=== PATIENT | male | born 1960 | race Caucasian/White ===

== ENCOUNTER → 2017-03-03 | Outpatient (CLI) | payer OTHER ==
--- NOTE | 2017-03-03 09:30 | US ---
EXAMINATION TYPE: US duplex aorta DATE OF EXAM: 03/03/2017 COMPARISON: NONE CLINICAL HISTORY: Palpable Abdomen Z13.6 Encounter for screening . Smoker EXAM MEASUREMENTS: Abdominal Aorta: Proximal: 2.2 x 2.3cm Mid: 1.3 x 1.8cm Distal: 2.4 x 2.4cm Bifurcation: RT: 0.6 x 0.7cm Calcifications noted distally. Limited evaluation of bifurcation due to overlying bowel and large juan carlos unt of calcification, possible right iliac visualized, unable to visualize left iliac. IMPRESSION: No greater than 3 cm aneurysmal change in the abdominal aorta is identified.
== END | disposition home or self-care (01) ==
LOC: RADUSWWP 07:41
PROVIDERS: ATTEND Family Medicine
DX: Z13.6 Encounter for screening for cardiovascular disorders (principal); F17.200 Nicotine dependence, unspecified, uncomplicated
CPT/HCPCS: 93979

== ENCOUNTER 2018-09-06 13:38 | Inpatient (IN) | payer OTHER ==
[2018-09-06] MEDS ORDERED: ASPIRIN 81 MG PO STA (14:01)
[2018-09-06] MEDS ORDERED: NITROGLYCERIN SL TABS 0.4 MG TAB SUBLINGUAL STA (14:01)
[2018-09-06] MEDS ORDERED: SODIUM CHLORIDE 0.9% 1,000 ML IV STA ×2 (14:01→17:01)
--- NOTE | 2018-09-06 14:08 | ED ---
General Adult HPI <Tano Arroyo - Last Filed: 09/06/18 17:16> - General Source: patient, EMS, RN notes reviewed Mode of arrival: EMS Limitations: no limitations <Sabino Buchanan - Last Filed: 09/06/18 17:37> - General Chief complaint: Chest Pain Stated complaint: chest heaviness Time Seen by Provider: 09/06/18 13:50 - History of Present Illness Initial comments: patient's a 58-year-old male presented to the emergency room today with multiple complaints. Patient did arrive by EMS. For abdominal pain that started this morning. He states is located in the upper abdomen is also been having chest pain over the last 3 or 4 days. Patient states that 3 days ago he also noticed some numbness tingling sensation going down into the left and right legs. He states he feels like his legs are weaker. He describes the numbness and tingling as pins and needles as if they're fallen asleep. Patient states that the pain in his chest as a pressure and heaviness as if his dog was laying on top of them. Patient also admits that the pain in the epigastric area is sharp in nature. He states he's not had this epigastric pain in the past. Patient denies any other complaints currently. Patient denies any recent fever, chills, shortness of breath, back pain,vomiting, numbness or tingling, headaches or visual changes, or any other complaints. (Sabino Buchanan) - Related Data Home Medications Medication Instructions Recorded Confirmed Megestrol [Megace] 400 mg PO BID 09/06/18 09/06/18 Allergies Allergy/AdvReac Type Severity Reaction Status Date / Time Paper Tape AdvReac Unknown Red , Uncoded 09/06/18 13:52 Irritated Skin Review of Systems ROS Other: All systems not noted in ROS Statement are negative. <Tano Arroyo - Last Filed: 09/06/18 17:16> ROS Other: All systems not noted in ROS Statement are negative. <Sabino Buchanan - Last Filed: 09/06/18 17:37> ROS Statement: Those systems with pertinent positive or pertinent negative responses have been documented in the HPI. Past Medical History Past Medical History: Cancer, Hypertension, Pulmonary Embolus (PE) Additional Past Medical History / Comment(s): HX OF LEUKEMIA (RECIEVED CHEMO- LAST 1983), HAND TREMORS, HX OF PEX2 LEFT LUNG, STATES "ARRYTHMIA", OCCASIONAL SWELLING RIGHT FOOT., BACK AND LEFT HIP PAIN., STATES RECENTLY TOLD HE WAS ANEMIC., PT TAKES METFORMIN BUT DOES NOT KNOW WHY, DENIES DIABETES. History of Any Multi-Drug Resistant Organisms: None Reported Past Surgical History: Hernia Repair, Joint Replacement, Orthopedic Surgery Additional Past Surgical History / Comment(s): ANNIKA HIP SURGERY, LEFT TOTAL HIP, PORT FOR CHEMO INSERTED AND REMOVED. , NOSE SURGERY. Past Anesthesia/Blood Transfusion Reactions: No Reported Reaction Past Psychological History: No Psychological Hx Reported Smoking Status: Heavy tobacco smoker Past Alcohol Use History: Occasional Past Drug Use History: Marijuana - Past Family History Father Family Medical History: Cancer Additional Family Medical History / Comment(s): LUNG CA Mother Family Medical History: Cancer Additional Family Medical History / Comment(s): LUNG CANCER <Sabino Buchanan - Last Filed: 09/06/18 17:37> General Exam <Tano Arroyo - Last Filed: 09/06/18 17:16> Limitations: no limitations <Sabino Buchanan - Last Filed: 09/06/18 17:37> - General Exam Comments Initial Comments: General: The patient is awake and alert, in no distress, and does not appear acutely ill. Eye: There is normal conjunctiva bilaterally. No signs of icterus. Ears, nose, mouth and throat: There are moist mucous membranes and no oral lesions. Neck: The neck is supple. Cardiovascular: There is a regular rate and rhythm. No murmur, rub or gallop is appreciated. Respiratory: Lungs are clear to auscultation, respirations are non-labored, breath sounds are equal. No wheezes, stridor, rales, or rhonchi. Gastrointestinal: abdomen soft on palpation. Patient does have tenderness epigastric and upper quadrants. No rebound, guarding or CVA tenderness. Musculoskeletal: Normal ROM, no tenderness. Strength 5/5. Sensation intact. Pulses equal bilaterally 2+. Neurological: A&O x 3. CN II-XII intact, There are no obvious motor or sensory deficits. Coordination appears grossly intact. Speech is normal. Skin: Skin is warm and dry and no rashes or lesions are noted. Psychiatric: Cooperative, appropriate mood & affect, normal judgment. (Sabino Buchanan) Course <Tano Arroyo - Last Filed: 09/06/18 17:16> <DewayneSabino - Last Filed: 09/06/18 17:37> Vital Signs 09/06/18 09/06/18 09/06/18 13:46 14:05 14:27 Temperature 97.1 F L Pulse Rate 74 78 84 Respiratory 18 16 15 Rate Blood Pressure 105/77 114/85 101/66 O2 Sat by Pulse 98 99 97 Oximetry 09/06/18 09/06/18 16:05 16:50 Temperature Pulse Rate 97 Respiratory 16 Rate Blood Pressure 100/68 84/67 O2 Sat by Pulse 100 Oximetry - Reevaluation(s) Reevaluation #1: 09/06/18 17:16 PA supervision: I proceeded [id number] evaluation the patient did discuss the findings with him and his family. Patient had the onset of chest pain is been intermittent for last several days he also had numbness to his lower extremities though no weakness. No new trauma. He does have some reproducibility to his chest pain but he also stated felt like his dog was lanced chest different times. Currently is pain-free except with palpation. He has no sensory deficits or motor deficits to his lower extremities he does however have marked tenderness palpation of the sciatic nerve as well as. He does have a history of prior hip surgeries. He will be admitted with consultation by Dr. Johnson who is seen in the past also [facility] who he has seen before. I did discuss the case with Alan who is covering for Dr. Kovacs. (Tano Arroyo) EKG Findings - EKG Comments: EKG Findings:: EKG performed at 1346: Shows normal sinus rhythm at 79 bpm. [place] interval 176. QRS 84. QT/QTc 420/481. <Sabino Buchanan - Last Filed: 09/06/18 17:37> Medical Decision Making - Lab Data Result diagrams: 09/06/18 14:00 09/06/18 14:00 <CruzTano - Last Filed: 09/06/18 17:16> - Lab Data Result diagrams: 09/06/18 14:00 09/06/18 14:00 <Sabino Buchanan - Last Filed: 09/06/18 17:37> - Medical Decision Making patient's ultrasound reviewed show no sign of acute cholecystitis. Does have a 19,000 white count. Patient chest x-ray is unremarkable. Patient can't take enzymes negative. EKG showing no acute changes. Does admit that he started having some chest heaviness and pain epigastric area this morning. Patient be admitted for serial enzymes with consult to cardiology. Patient also admits to lower back pain with numbness tingling down to his legs. Consult to [facility] who has seen in the past. Case discussed seen by attending physician Dr. Arroyo. (DewayneSabino) - Lab Data Lab Results 09/06/18 09/06/18 09/06/18 Range/Units 14:00 14:00 14:00 WBC 19.3 H (3.8-10.6) k/uL RBC 3.96 L (4.30-5.90) m/uL Hgb 13.0 (13.0-17.5) gm/dL Hct 39.5 (39.0-53.0) % MCV 99.8 (80.0-100.0) fL MCH 32.7 (25.0-35.0) pg MCHC 32.8 (31.0-37.0) g/dL RDW 15.7 H (11.5-15.5) % Plt Count 425 (150-450) k/uL Neutrophils % 90 % Lymphocytes % 6 % Monocytes % 3 % Eosinophils % 0 % Basophils % 0 % Neutrophils # 17.3 H (1.3-7.7) k/uL Lymphocytes # 1.2 (1.0-4.8) k/uL Monocytes # 0.6 (0-1.0) k/uL Eosinophils # 0.1 (0-0.7) k/uL Basophils # 0.0 (0-0.2) k/uL Macrocytosis Slight PT (9.0-12.0) sec INR (<1.2) APTT (22.0-30.0) sec Sodium 136 L (137-145) mmol/L Potassium 4.0 (3.5-5.1) mmol/L Chloride 105 (98-107) mmol/L Carbon Dioxide 23 (22-30) mmol/L Anion Gap 8 mmol/L BUN 9 (9-20) mg/dL Creatinine 0.62 L (0.66-1.25) mg/dL Est GFR (CKD-EPI)AfAm >90 (>60 ml/min/1.73 sqM) Est GFR (CKD-EPI)NonAf >90 (>60 ml/min/1.73 sqM) Glucose 139 H (74-99) mg/dL Calcium 8.6 (8.4-10.2) mg/dL Magnesium 1.6 (1.6-2.3) mg/dL Total Bilirubin 1.0 (0.2-1.3) mg/dL AST 21 (17-59) U/L ALT 18 L (21-72) U/L Alkaline Phosphatase 140 H (38-126) U/L Total Creatine Kinase 24 L (55-170) U/L CK-MB (CK-2) 0.4 (0.0-2.4) ng/mL CK-MB (CK-2) Rel Index 1.7 Troponin I 0.030 (0.000-0.034) ng/mL Total Protein 5.7 L (6.3-8.2) g/dL Albumin 2.7 L (3.5-5.0) g/dL Amylase <30 L (30-110) U/L Lipase 72 (23-300) U/L Urine Color Urine Appearance (Clear) Urine pH (5.0-8.0) Ur Specific [place] (1.001-1.035) Urine Protein (Negative) Urine Glucose (UA) (Negative) Urine Ketones (Negative) Urine Blood (Negative) Urine Nitrite (Negative) Urine Bilirubin (Negative) Urine Urobilinogen (<2.0) mg/dL Ur Leukocyte Esterase (Negative) Urine RBC (0-5) /hpf Urine WBC (0-5) /hpf Ur Squamous Epith Cells (0-4) /hpf Urine Mucus (None) /hpf 09/06/18 09/06/18 Range/Units 14:00 17:15 WBC (3.8-10.6) k/uL RBC (4.30-5.90) m/uL Hgb (13.0-17.5) gm/dL Hct (39.0-53.0) % MCV (80.0-100.0) fL MCH (25.0-35.0) pg MCHC (31.0-37.0) g/dL RDW (11.5-15.5) % Plt Count (150-450) k/uL Neutrophils % % Lymphocytes % % Monocytes % % Eosinophils % % Basophils % % Neutrophils # (1.3-7.7) k/uL Lymphocytes # (1.0-4.8) k/uL Monocytes # (0-1.0) k/uL Eosinophils # (0-0.7) k/uL Basophils # (0-0.2) k/uL Macrocytosis PT 10.0 (9.0-12.0) sec INR 0.9 (<1.2) APTT 22.4 (22.0-30.0) sec Sodium (137-145) mmol/L Potassium (3.5-5.1) mmol/L Chloride (98-107) mmol/L Carbon Dioxide (22-30) mmol/L Anion Gap mmol/L BUN (9-20) mg/dL Creatinine (0.66-1.25) mg/dL Est GFR (CKD-EPI)AfAm (>60 ml/min/1.73 sqM) Est GFR (CKD-EPI)NonAf (>60 ml/min/1.73 sqM) Glucose (74-99) mg/dL Calcium (8.4-10.2) mg/dL Magnesium (1.6-2.3) mg/dL Total Bilirubin (0.2-1.3) mg/dL AST (17-59) U/L ALT (21-72) U/L Alkaline Phosphatase (38-126) U/L Total Creatine Kinase (55-170) U/L CK-MB (CK-2) (0.0-2.4) ng/mL CK-MB (CK-2) Rel Index Troponin I (0.000-0.034) ng/mL Total Protein (6.3-8.2) g/dL Albumin (3.5-5.0) g/dL Amylase (30-110) U/L Lipase (23-300) U/L Urine Color Yellow Urine Appearance Clear (Clear) Urine pH 6.0 (5.0-8.0) Ur Specific [place] 1.020 (1.001-1.035) Urine Protein 1+ H (Negative) Urine Glucose (UA) Negative (Negative) Urine Ketones Trace H (Negative) Urine Blood Negative (Negative) Urine Nitrite Negative (Negative) Urine Bilirubin Negative (Negative) Urine Urobilinogen <2.0 (<2.0) mg/dL Ur Leukocyte Esterase Negative (Negative) Urine RBC 1 (0-5) /hpf Urine WBC 2 (0-5) /hpf Ur Squamous Epith Cells <1 (0-4) /hpf Urine Mucus Moderate H (None) /hpf Disposition <Tano Arroyo - Last Filed: 09/06/18 17:16> Is patient prescribed a controlled substance at d/c from ED?: No Time of Disposition: 17:04 <Sabino Buchanan - Last Filed: 09/06/18 17:37> Clinical Impression: Chest pain, Sciatica Disposition: ADMITTED IP TO THIS HOSP Condition: Good Referrals: [facility] [Primary Care Provider] - 1-2 days
[2018-09-06 14:39] LABS: Basophils % (A) 0 %; Eosinophils # (A) 0.1 k/uL (0-0.7); Eosinophils % (A) 0 %; HCT 39.5 % (39.0-53.0); Lymphocytes # (A) 1.2 k/uL (1.0-4.8); Lymphocytes % (A) 6 %; MCH 32.7 pg (25.0-35.0); MCHC 32.8 g/dL (31.0-37.0); MCV 99.8 fL (80.0-100.0); Macrocytosis Slight; Mean Platelet Volume 7.2; Monocytes # (A) 0.6 k/uL (0-1.0); Monocytes % (A) 3 %; Neutrophils # (A) 17.3 k/uL (1.3-7.7); Neutrophils % (A) 90 %; Platelet Count 425 k/uL (150-450); RBC 3.96 m/uL (4.30-5.90); RDW 15.7 % (11.5-15.5); WBC 19.3 k/uL (3.8-10.6)
[2018-09-06 14:48] LABS: ALT 18 U/L (21-72); AST 21 U/L (17-59); Albumin 2.7 g/dL (3.5-5.0); Alkaline Phosphatase 140 U/L (38-126); Amylase <30 U/L (30-110); Anion Gap 8 mmol/L; Blood Urea Nitrogen 9 mg/dL (9-20); Calcium 8.6 mg/dL (8.4-10.2); Carbon Dioxide 23 mmol/L (22-30); Chloride 105 mmol/L (98-107); Glucose 139 mg/dL (74-99); Lipase 72 U/L (23-300); Magnesium 1.6 mg/dL (1.6-2.3); Sodium 136 mmol/L (137-145); Total Protein 5.7 g/dL (6.3-8.2)
--- NOTE | 2018-09-06 14:48 | XR ---
EXAMINATION TYPE: XR chest 2V DATE OF EXAM: 09/06/2018 COMPARISON: Prior chest x-ray 02/27/2013 HISTORY: Chest pain TECHNIQUE: Frontal and lateral views of the chest are obtained. FINDINGS: There is no focal air space opacity, pleural effusion, or pneumothorax seen. The cardiac silhouette size is within normal limits. Prominent lung volumes persists which may be indicative of u nderlying COPD. The osseous structures are intact. IMPRESSION: No acute cardiopulmonary process.
[2018-09-06 14:49] LABS: INR 0.9 (<1.2); Partial Thromboplastin Time 22.4 sec (22.0-30.0)
[2018-09-06 15:06] LABS: Creatine Kinase MB 0.4 ng/mL (0.0-2.4); Troponin I 0.03 ng/mL (0.000-0.034)
[2018-09-06] MEDS ORDERED: HYDROmorphone 0.5 MG/0.5 ML SYRINGE IVP STA (15:24)
[2018-09-06] MEDS ORDERED: METOCLOPRAMIDE 5 MG/ML 2 ML VIAL IVP STA (15:25)
--- NOTE | 2018-09-06 16:20 | US ---
EXAMINATION TYPE: US abdomen limited DATE OF EXAM: 09/06/2018 COMPARISON: NONE CLINICAL HISTORY: 58-year-old male Pain. Epigastric pain today TECHNIQUE: Multiple sonographic images of the right upper quadrant are obtained. FINDINGS: EXAM MEASUREMENTS: Liver Length: 11.5 cm Gallbladder Wall: 0.3 cm CBD: 0.3 cm Right Kidney: 9.2 x 4.6 x 4.6 cm Pancreas: slightly heterogeneous but without specific abnormality Liver: normal size with homogeneous appearance. No focal lesion seen. Gallbladder: no abnormal distention, wall thickening, pericholecystic fluid, or shadowing calculi. Evidence for sonographic Black's sign: no CBD: wnl Right Kidney: no evidence of hydronephrosis IMPRESSION: Unremarkable sonographic examination of the right upper quadrant.
[2018-09-06] MEDS ORDERED: SODIUM CHLORIDE 0.9% 500 ML IV STA (17:05)
[2018-09-06 17:31] LABS: Appearance,Urine Clear (Clear); Bilirubin,Urine Negative (Negative); Blood,Urine Negative (Negative); Color,Urine Yellow; Glucose,Urine (UA) Negative (Negative); Ketones,Urine Trace (Negative); Leukocyte Esterase,Urine Negative (Negative); Mucus,Urine Moderate /hpf; Nitrite,Urine Negative (Negative); Protein,Urine 1+ (Negative); RBC,Urine 1 /hpf (0-5); Squamous Epithelial Cell,Urine <1 /hpf (0-4); Urobilinogen,Urine <2.0 mg/dL (<2.0)
[2018-09-06] MEDS ORDERED: NALOXONE 0.4 MG/ML 1 ML VIAL IV PRN (17:37)
[2018-09-06] MEDS ORDERED: NITROGLYCERIN SL TABS 0.4 MG TAB SUBLINGUAL PRN (17:40)
[2018-09-06 22:16] LABS: Troponin I 0.138 ng/mL (0.000-0.034)
[2018-09-07] MEDS ORDERED: METOCLOPRAMIDE 5 MG/ML 2 ML VIAL ONE (00:12)
[2018-09-07 03:00] LABS: Basophils % (A) 0 %; Eosinophils # (A) 0.2 k/uL (0-0.7); Eosinophils % (A) 1 %; HCT 41.4 % (39.0-53.0); HGB 13.3 gm/dL (13.0-17.5); Lymphocytes # (A) 1.1 k/uL (1.0-4.8); Lymphocytes % (A) 4 %; MCH 32.8 pg (25.0-35.0); MCHC 32.1 g/dL (31.0-37.0); MCV 102.1 fL (80.0-100.0); Macrocytosis Slight; Mean Platelet Volume 6.8; Monocytes # (A) 0.7 k/uL (0-1.0); Monocytes % (A) 3 %; Neutrophils # (A) 23.7 k/uL (1.3-7.7); Neutrophils % (A) 92 %; Platelet Count 393 k/uL (150-450); RBC 4.05 m/uL (4.30-5.90); WBC 25.8 k/uL (3.8-10.6)
[2018-09-07 03:16] LABS: Cholesterol 170 mg/dL (<200); HDL Cholesterol 43 mg/dL (40-60); LDL Cholesterol,Calculated 103 mg/dL (0-99); Triglycerides 120 mg/dL (<150)
[2018-09-07 03:33] LABS: Creatine Kinase MB 1.5 ng/mL (0.0-2.4)
[2018-09-07 03:40] LABS: Troponin I 0.201 ng/mL (0.000-0.034)
[2018-09-07] MEDS ORDERED: HEPARIN SODIUM,PORCINE 5,000 UNIT/ML 1 ML VIAL IV ONE (08:11)
[2018-09-07] MEDS ORDERED: HEPARIN SODIUM,PORCINE 5,000 UNIT/ML 1 ML VIAL IV PRN (08:11)
[2018-09-07] MEDS ORDERED: ATORVASTATIN 40 MG TAB PO STA (08:14)
[2018-09-07] MEDS ORDERED: HEPARIN SOD,PORK IN 0.45% NACL 25,000 UNIT in 0.45% NACL 1 250ML.BAG IV SCH (08:15)
--- NOTE | 2018-09-07 08:22 | P.CRDCN ---
History of Present Illness Consult date: 09/07/18 Requesting physician: Robbie Kovacs Consult reason: chest pain Chief complaint: Chest tightness, abdominal pain History of present illness: This is a 58-year-old gentleman with no prior documented history of hypertension, no diabetes, no hyperlipidemia, he does smoke 2 packs of cigarettes per day, history of COPD, he also has a family history of premature coronary artery disease in his father who had a myocardial infarction at a young age. He states that he does follow with Dr. Karen Johnson in the office. Patient presented to the hospital with symptoms of chest tightness, he states that for the past couple of days he's been having intermittent chest tightness with associated diaphoresis. He's also noticed some numbness in his bilateral legs. Patient states that he's been having chest pressure and heaviness as well as a discomfort in his epigastric and abdominal region. Yesterday patient did have associated nausea and vomiting, and did have some episodes of loose stools. Chest x-ray on admission here did not reveal any acute cardiopulmonary process. Ultrasound of the abdomen was performed which revealed unremarkable sonographic examination of the right upper quadrant. EKG showed a normal sinus rhythm with nonspecific ST-T wave changes. White blood cell count on arrival 19.3, 25.8 this morning, hemoglobin 13, platelet count 393. Sodium 136, potassium 4.0, BUN 9, creatinine 0.6, lactic acid 1.6. Alkaline phosphatase 140 , initial troponin 0.030, subsequent troponin 0.1, 0.2. Cholesterol 170, triglycerides 120, LDL 103, HDL 43. At time of my examination this morning, patient complains of mild chest tightness, feels very thirsty, states he has not had anything to eat or drink in the past 24 hours. Past Medical History Past Medical History: Cancer, COPD, Pneumonia, Pulmonary Embolus (PE) Additional Past Medical History / Comment(s): HX OF LEUKEMIA (RECIEVED CHEMO- LAST 1983) hx ulcers around the time he was receiving chemo , HAND TREMORS, HX OF PEX2 LEFT LUNG when receivng chemo, BACK AND LEFT HIP PAIN., hx of anemia has had blood transfusions and iron infusions, sciatic nerve pain History of Any Multi-Drug Resistant Organisms: None Reported Past Surgical History: Hernia Repair, Joint Replacement, Orthopedic Surgery Additional Past Surgical History / Comment(s): ANNIKA HIP SURGERY, LEFT TOTAL HIP, PORT FOR CHEMO INSERTED AND REMOVED. , NOSE SURGERY.egd/colonoscopy/polypectomy Past Anesthesia/Blood Transfusion Reactions: No Reported Reaction Additional Past Anesthesia/Blood Transfusion Reaction / Comment(s): blood transfusion-no reaction Smoking Status: Current every day smoker - Past Family History Father Family Medical History: Cancer Additional Family Medical History / Comment(s): LUNG CA Mother Family Medical History: Cancer Additional Family Medical History / Comment(s): LUNG CANCER Medications and Allergies Home Medications Medication Instructions Recorded Confirmed Type Megestrol [Megace] 400 mg PO BID 09/06/18 09/06/18 History Allergies Allergy/AdvReac Type Severity Reaction Status Date / Time Paper Tape AdvReac Unknown Red , Uncoded 09/06/18 13:52 Irritated Skin Physical Exam Vitals: Vital Signs Temp Pulse Pulse Resp BP BP Pulse Ox 09/07/18 03:11 97.3 F L 98 16 109/73 99 09/06/18 23:42 97.4 F L 107 H 18 117/77 99 09/06/18 22:27 88 18 105/69 97 09/06/18 19:30 92 15 99/69 98 09/06/18 18:38 85 16 93/63 98 09/06/18 17:46 85 16 106/72 99 09/06/18 16:50 84/67 09/06/18 16:05 97 16 100/68 100 09/06/18 14:27 84 15 101/66 97 09/06/18 14:05 78 16 114/85 99 09/06/18 13:46 97.1 F L 74 18 105/77 98 Intake and Output 09/06/18 09/07/18 09/07/18 22:59 06:59 14:59 Intake Total 10 Balance 10 Intake: IV 10 0.9 10 Other: Voiding Method Urinal Weight 72.5 kg PHYSICAL EXAMINATION: GENERAL: 58-year-old somewhat of a seated gentleman in no acute distress at the time of my examination HEENT: Head is atraumatic, normocephalic. Pupils equal, round. Sclera anicteric. Conjunctiva are clear. Mucous membranes of the mouth are moist. Neck is supple. There is no elevated jugular venous pressure. No carotid bruit is heard. HEART EXAMINATION: Heart S1, S2 normal. No murmur or gallop heard. CHEST EXAMINATION: Lungs reveal decreased air exchange throughout. ABDOMEN: Soft, mild generalized tenderness . Bowel sounds are heard. No organomegaly noted. EXTREMITIES: 1+ peripheral pulses with no evidence of peripheral edema and no calf tenderness noted. NEUROLOGIC patient is awake, alert and oriented 3 . . Results 09/07/18 02:41 09/06/18 14:00 Cardiac Enzymes 09/06/18 09/06/18 09/06/18 Range/Units 14:00 14:00 20:48 AST 21 (17-59) U/L CK-MB (CK-2) 0.4 1.0 (0.0-2.4) ng/mL Troponin I 0.030 0.138 H* (0.000-0.034) ng/mL 09/07/18 Range/Units 02:41 AST (17-59) U/L CK-MB (CK-2) 1.5 (0.0-2.4) ng/mL Troponin I 0.201 H* (0.000-0.034) ng/mL Coagulation 09/06/18 Range/Units 14:00 PT 10.0 (9.0-12.0) sec APTT 22.4 (22.0-30.0) sec Lipids 09/07/18 Range/Units 02:41 Triglycerides 120 (<150) mg/dL Cholesterol 170 (<200) mg/dL HDL Cholesterol 43 (40-60) mg/dL CBC 09/06/18 09/07/18 Range/Units 14:00 02:41 WBC 19.3 H 25.8 H (3.8-10.6) k/uL RBC 3.96 L 4.05 L (4.30-5.90) m/uL Hgb 13.0 13.3 (13.0-17.5) gm/dL Hct 39.5 41.4 (39.0-53.0) % Plt Count 425 393 (150-450) k/uL Comprehensive Metabolic Panel 09/06/18 Range/Units 14:00 Sodium 136 L (137-145) mmol/L Potassium 4.0 (3.5-5.1) mmol/L Chloride 105 (98-107) mmol/L Carbon Dioxide 23 (22-30) mmol/L BUN 9 (9-20) mg/dL Creatinine 0.62 L (0.66-1.25) mg/dL Glucose 139 H (74-99) mg/dL Calcium 8.6 (8.4-10.2) mg/dL AST 21 (17-59) U/L ALT 18 L (21-72) U/L Alkaline Phosphatase 140 H (38-126) U/L Total Protein 5.7 L (6.3-8.2) g/dL Albumin 2.7 L (3.5-5.0) g/dL Current Medications Generic Name Dose Route Start Last Admin Trade Name Freq PRN Reason Stop Dose Admin Aspirin 325 mg 09/07/18 09:00 Aspirin PO DAILY LASHAUN Naloxone HCl 0.2 mg 09/06/18 17:37 Narcan IV Q2M PRN Opioid Reversal Nitroglycerin 0.4 mg 09/06/18 17:40 Nitrostat SUBLINGUAL Q5M PRN Chest Pain Pantoprazole Sodium 40 mg 09/07/18 09:00 Protonix IVP BID LASHAUN Intake and Output 09/06/18 09/07/18 09/07/18 22:59 06:59 14:59 Intake Total 10 Balance 10 Intake: IV 10 0.9 10 Other: Voiding Method Urinal Weight 72.5 kg 09/07/18 02:41 09/06/18 14:00 EKG Interpretations (text) EKG shows normal sinus rhythm with nonspecific ST-T wave changes Assessment and Plan Plan: Assessment and plan #1 symptoms of midsternal chest tightness with associated pressure and heaviness , diaphoresis. EKG shows normal sinus rhythm with nonspecific ST-T wave changes. Troponins 0.03, 0.13, 0.20. Possible acute coronary syndrome #2 abdominal discomfort with associated vomiting and diarrhea. Ultrasound of the abdomen did not reveal any acute findings. #3 2 pack per day smoker #4 COPD #5 family history of premature coronary artery disease in his father who had a myocardial infarction at a young age #6 elevated white blood cell count with no evidence of fever, exact etiology unknown Plan We will obtain an echocardiogram with Doppler study. Continue aspirin. Patient has had some type of reaction to heparin in the past therefore we will not initiated at this time. We recommend doing a CT of the abdomen today. Further recommendations to follow. DNP note has been reviewed, I agree with a documented findings and plan of care. Patient was seen and examined.
[2018-09-07] MEDS: METOPROLOL TARTRATE 12.5 MG TAB PO SCH ×2 (09:10→23:25)
[2018-09-07] MEDS: ASPIRIN 325 MG TAB PO SCH (09:11)
[2018-09-07] MEDS: PANTOPRAZOLE 40 MG/10 ML VIAL IVP SCH ×2 (09:13→21:03)
[2018-09-07] MEDS: IOPAMIDOL-300 CONTRAST 30 ML VIAL (ORAL USE) PO PRN ×2 (09:33→10:28)
[2018-09-07] MEDS ORDERED: IPRATROPIUM-ALBUTEROL 3 ML NEB INHALATION PRN (10:00)
[2018-09-07 10:02] LABS: Partial Thromboplastin Time 22.1 sec (22.0-30.0); Prothrombin Time 10.4 sec (9.0-12.0)
--- NOTE | 2018-09-07 11:19 | P.HPIM ---
History of Present Illness 58-year-old gentleman with known history of COPD came in with complaints of chest pressure like sensation which started yesterday constant moderate severity his chest pain is tightness nonradiating no associated lightheadedness shortness of breath. Patient will also comparing of pain in the right lower quadrant sharp pain 8/10 in severity nonradiating associated with nausea and vomiting. 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 Was on the abdomen was done for the right upper quadrant which is negative patient still has his appendix CAT scan was already ordered by cardiology which is appropriate and patient the need to be ruled out for appendicitis although patient's abdomen is nondistended no rebound or rigidity the other differential being colitis because of which patient will be started on antibiotic ceftriaxone and metronidazole. Was started on IV fluids as well.patient did have mild elevation of troponins of 0.1 [address] depressions patient had couple episodes of dark stools because of which the probably not a candidate for IV heparin. Patient last stool was brown without any blood or dark stools. Review of Systems REVIEW OF SYSTEMS: CONSTITUTIONAL: No fever, no malaise, no fatigue. HEENT: No recent visual problems or hearing problems. Denied any sore throat. CARDIOVASCULAR: No orthopnea, PND, no palpitations, no syncope. PULMONARY: No shortness of breath, no cough, no hemoptysis. GASTROINTESTINALas mentioned in HPI NEUROLOGICAL: No headaches, no weakness, no numbness. HEMATOLOGICAL: Denies any bleeding or petechiae. GENITOURINARY: Denies any burning micturition, frequency, or urgency. MUSCULOSKELETAL/RHEUMATOLOGICAL: Denies any joint pain, swelling, or any muscle pain. ENDOCRINE: Denies any polyuria or polydipsia. The rest of the 14-point review of systems is negative. Past Medical History Past Medical History: Cancer, COPD, Pneumonia, Pulmonary Embolus (PE) Additional Past Medical History / Comment(s): HX OF LEUKEMIA (RECIEVED CHEMO- LAST 1983) hx ulcers around the time he was receiving chemo , HAND TREMORS, HX OF PEX2 LEFT LUNG when receivng chemo, BACK AND LEFT HIP PAIN., hx of anemia has had blood transfusions and iron infusions, sciatic nerve pain History of Any Multi-Drug Resistant Organisms: None Reported Past Surgical History: Hernia Repair, Joint Replacement, Orthopedic Surgery Additional Past Surgical History / Comment(s): ANNIKA HIP SURGERY, LEFT TOTAL HIP, PORT FOR CHEMO INSERTED AND REMOVED. , NOSE SURGERY.egd/colonoscopy/polypectomy Past Anesthesia/Blood Transfusion Reactions: No Reported Reaction Additional Past Anesthesia/Blood Transfusion Reaction / Comment(s): blood transfusion-no reaction Smoking Status: Current every day smoker - Past Family History Father Family Medical History: Cancer Additional Family Medical History / Comment(s): LUNG CA Mother Family Medical History: Cancer Additional Family Medical History / Comment(s): LUNG CANCER Medications and Allergies Home Medications Medication Instructions Recorded Confirmed Type Megestrol [Megace] 400 mg PO BID 09/06/18 09/06/18 History Allergies Allergy/AdvReac Type Severity Reaction Status Date / Time Paper Tape AdvReac Unknown Red , Uncoded 09/06/18 13:52 Irritated Skin Physical Exam Vitals: Vital Signs Temp Pulse Pulse Resp BP BP Pulse Ox 09/07/18 09:37 97.1 F L 89 20 115/70 97 09/07/18 03:11 97.3 F L 98 16 109/73 99 09/06/18 23:42 97.4 F L 107 H 18 117/77 99 09/06/18 22:27 88 18 105/69 97 09/06/18 19:30 92 15 99/69 98 09/06/18 18:38 85 16 93/63 98 09/06/18 17:46 85 16 106/72 99 09/06/18 16:50 84/67 09/06/18 16:05 97 16 100/68 100 09/06/18 14:27 84 15 101/66 97 09/06/18 14:05 78 16 114/85 99 09/06/18 13:46 97.1 F L 74 18 105/77 98 Intake and Output 09/06/18 09/07/18 09/07/18 22:59 06:59 14:59 Intake Total 10 Balance 10 Intake: IV 10 0.9 10 Other: Voiding Method Urinal Urinal Weight 72.5 kg PHYSICAL EXAMINATION: GENERAL: The patient is alert and oriented x3, not in any acute distress. Well developed, well nourished. HEENT: Pupils are round and equally reacting to light. EOMI. No scleral icterus. No conjunctival pallor. Normocephalic, atraumatic. No pharyngeal erythema. No thyromegaly. CARDIOVASCULAR: S1 and S2 present. No murmurs, rubs, or gallops. PULMONARY: Chest is clear to auscultation, no wheezing or crackles. ABDOMEN:soft tenderness in the right lower quadrant no rebound or rigidity bowel sounds are present MUSCULOSKELETAL: No joint swelling or deformity. EXTREMITIES: No cyanosis, clubbing, or pedal edema. NEUROLOGICAL: Gross neurological examination did not reveal any focal deficits. SKIN: No rashes. Results CBC & Chem 7: 09/07/18 02:41 09/06/18 14:00 Labs: Abnormal Lab Results - Last 24 Hours (Table) 09/06/18 09/06/18 09/06/18 Range/Units 14:00 14:00 14:00 WBC 19.3 H (3.8-10.6) k/uL RBC 3.96 L (4.30-5.90) m/uL MCV (80.0-100.0) fL RDW 15.7 H (11.5-15.5) % Neutrophils # 17.3 H (1.3-7.7) k/uL Sodium 136 L (137-145) mmol/L Creatinine 0.62 L (0.66-1.25) mg/dL Glucose 139 H (74-99) mg/dL ALT 18 L (21-72) U/L Alkaline Phosphatase 140 H (38-126) U/L Total Creatine Kinase 24 L (55-170) U/L Troponin I (0.000-0.034) ng/mL Total Protein 5.7 L (6.3-8.2) g/dL Albumin 2.7 L (3.5-5.0) g/dL LDL Cholesterol, Calc (0-99) mg/dL Amylase <30 L (30-110) U/L Urine Protein (Negative) Urine Ketones (Negative) Urine Mucus (None) /hpf 09/06/18 09/06/18 09/07/18 Range/Units 17:15 20:48 02:41 WBC (3.8-10.6) k/uL RBC (4.30-5.90) m/uL MCV (80.0-100.0) fL RDW (11.5-15.5) % Neutrophils # (1.3-7.7) k/uL Sodium (137-145) mmol/L Creatinine (0.66-1.25) mg/dL Glucose (74-99) mg/dL ALT (21-72) U/L Alkaline Phosphatase (38-126) U/L Total Creatine Kinase 44 L (55-170) U/L Troponin I 0.138 H* 0.201 H* (0.000-0.034) ng/mL Total Protein (6.3-8.2) g/dL Albumin (3.5-5.0) g/dL LDL Cholesterol, Calc (0-99) mg/dL Amylase (30-110) U/L Urine Protein 1+ H (Negative) Urine Ketones Trace H (Negative) Urine Mucus Moderate H (None) /hpf 09/07/18 09/07/18 Range/Units 02:41 02:41 WBC 25.8 H (3.8-10.6) k/uL RBC 4.05 L (4.30-5.90) m/uL MCV 102.1 H (80.0-100.0) fL RDW 16.0 H (11.5-15.5) % Neutrophils # 23.7 H (1.3-7.7) k/uL Sodium (137-145) mmol/L Creatinine (0.66-1.25) mg/dL Glucose (74-99) mg/dL ALT (21-72) U/L Alkaline Phosphatase (38-126) U/L Total Creatine Kinase (55-170) U/L Troponin I (0.000-0.034) ng/mL Total Protein (6.3-8.2) g/dL Albumin (3.5-5.0) g/dL LDL Cholesterol, Calc 103 H (0-99) mg/dL Amylase (30-110) U/L Urine Protein (Negative) Urine Ketones (Negative) Urine Mucus (None) /hpf Thrombosis Risk Factor Assmnt - Choose All That Apply Any of the Below Risk Factors Present?: Yes Each Factor Represents 1 point: Age 41-60 years Each Risk Factor Represents 3 Points: Family history of DVT/PE Thrombosis Risk Factor Assessment Total Risk Factor Score: 4 Thrombosis Risk Factor Assessment Level: Moderate Risk Assessment and Plan Plan: - possible non-ST elevation microinfarction patient is not a candidate for heparin because of the bleed at this time cardiology evaluated the patient is recommending cardiac nonemergent cardiac catheterization.once the abdominal infection issues addressed -Abdominal pain right lower quadrant abdominal pain we will rule out appendicitis colitis is a consideration patient appears to have infectious colitis with GI bleed no recent antibiotic use patient will be started on metronidazole IV and Rocephin IV awaiting CAT scan of the abdomen. -Acute lower GI bleed probably because of infectious colitis possibility of ischemic colitis is low although cannot be completely ruled out -Acute lymphocytic leukemia history which is in remission -COPD with acute examination patient does have wheezing on exam patient smokes 2 packs of cigarettes per day is not willing to quit smoking patient will be started on Symbicort and albuterol ipratropium -Neutrophilic leukocytosis secondary to probable colitis
[2018-09-07] MEDS: cefTRIAXone 2,000 MG in SODIUM CHLORIDE 0.9% 100 ML IVPB SCH (11:34)
[2018-09-07] MEDS: NICOTINE 21MG/24HR PATCH TRANSDERM SCH (11:42)
--- NOTE | 2018-09-07 11:45 | CT ---
"EXAMINATION TYPE: CT abdomen pelvis w con DATE OF EXAM: 09/07/2018 COMPARISON: Limited abdominal ultrasound from yesterday.. HISTORY: Right lower quadrant pain with nausea, vomiting and diarrhea CT DLP: 835.1 mGycm, Automated Exposure Control for Dose Reduction was Utilized. CONTRAST: CT scan of the abdomen and pelvis is performed with oral and with IV Contrast, patient injected with 100 mL of Isovue 300. FINDINGS: LUNG BASES: There is some prominence of fat into the pleural space posterior lung bases mimicking eff usions. LIVER/GB: No significant abnormality is appreciated. PANCREAS: No significant abnormality is seen. SPLEEN: No significant abnormality is seen. ADRENALS: No significant abnormality is seen. KIDNEYS: No significant abnormality is seen. BOWEL: The oral contrast reaches level of rectum. There is no suspicious small or large bowel dilatat ion. There is mild to moderate wall thickening throughout ileal loops in the right midabdomen includi ng the lower quadrant and pelvis. There is extension to the terminal ileum where there is mild wall t hickening seen also identified. Appendix measures upper limits of normal near base at 6 mm coronal im age 53 but tapers towards tip without surrounding fat stranding or inflammatory change. There is mild wall thickening in the left and transverse colon as well as mild to moderate wall thickening in the proximal to mid sigmoid colon. PROSTATE/SEMINAL VESICLES: Suboptimal evaluation. LYMPH NODES: No greater than 1cm abdominal or pelvic lymph nodes are appreciated. OSSEOUS STRUCTURES: Metallic hardware from bilateral hip arthroplasty causes streak artifact limiting evaluation of pelvic structures. There is transitional-type vertebra at lumbosacral junction. OTHER: There is severe atherosclerotic change of the infrarenal abdominal aorta extending into branch vessels. 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 IMPRESSION: Mild to moderate right-sided enteritis involving distal small bowel loops including termi nal ileum. Also suspect additional mild multifocal colitis. Correlate clinically for acute infectious or inflammatory etiologies. Differential however includes ischemic etiology as there is occlusion of the distal abdominal aorta and iliac arterial branch vessels in the bilateral pelvis. Correlate clin ically and with lactic acid values. A [place] level critical message alert has been initiated for Robbie Kovacs MD via the [employer] | Critical Results System on 09/07/2018 11:43 AM. This message alert has been sent to Robbie Kovacs MD via the preferences provided by the clinician for the receipt of Radiology Critical Findi ngs. Message ID [id number]."
--- NOTE | 2018-09-07 11:49 | ECHOF ---
Referral Reason:chest pain MEASUREMENTS -------- HEIGHT: 162.6 cm WEIGHT: 72.6 kg BP: IVSd: 1.1 cm (0.6 - 1.1) LVIDd: 4.0 cm (3.9 - 5.3) LVPWd: 1.2 cm (0.6 - 1.1) IVSs: 1.0 cm LVIDs: 3.5 cm LVPWs: 1.4 cm Ao Diam: 2.8 cm (2.0 - 3.7) AV Cusp: 1.7 cm (1.5 - 2.6) MV EXCURSION: 15.965 mm (> 18.000) MV EF SLOPE: 86 mm/s (70 - 150) EPSS: 0.9 cm MV E Sebastian: 0.45 m/s MV DecT: 213 ms MV A Sebastian: 0.72 m/s MV E/A Ratio: 0.62 RAP: 5.00 mmHg RVSP: 30.27 mmHg FINDINGS -------- Sinus rhythm. This was a techncally difficult study with suboptimal views, , Lumason utilized for enhancement of im ages. The left ventricular size is normal. Left ventricular wall thickness is normal. Overall left vent ricular systolic function is low-normal with, an EF between 50 - 55 %. . Basal septal hypokinesia The right ventricle is normal in size. The left atrial size is normal. The right atrial size is normal. 5.0mg OF Lumason UTLIZED: 2 OR MORE WALL SEGMENTS NOT VISUALIZED. The aortic valve is trileaflet, and appears structurally normal. No aortic stenosis or regurgitation. Mild mitral annular calcification present. Mild mitral regurgitation is present. Mild tricuspid regurgitation present. There is no evidence of pulmonary hypertension. The right v entricular systolic pressure, as measured by Doppler, is 30.27mmHg. There is no pulmonic regurgitation present. The aortic root size is normal. Echo free space represents a pericardial fat pad. CONCLUSIONS -------- 1. This was a techncally difficult study with suboptimal views, , Lumason utilized for enhancement of images. 2. The left ventricular size is normal. 3. Left ventricular wall thickness is normal. 4. . Basal septal hypokinesia 5. The right ventricle is normal in size. 6. The left atrial size is normal. 7. The right atrial size is normal. 8. 5.0mg OF Lumason UTLIZED: 2 OR MORE WALL SEGMENTS NOT VISUALIZED. 9. The aortic valve is trileaflet, and appears structurally normal. No aortic stenosis or regurgitati on. 10. Mild mitral annular calcification present. 11. Mild mitral regurgitation is present. 12. Mild tricuspid regurgitation present. 13. There is no evidence of pulmonary hypertension. 14. The right ventricular systolic pressure, as measured by Doppler, is 30.27mmHg. 15. There is no pulmonic regurgitation present. 16. The aortic root size is normal. 17. Echo free space represents a pericardial fat pad. RAG GRADER: Taim Loza RDCS
[2018-09-07] MEDS: metroNIDAZOLE-NS PMX 500 MG in SALINE 1 100ML.BAG IVPB SCH ×3 (12:58→23:24)
[2018-09-07] MEDS: SODIUM CHLORIDE 0.9% 1,000 ML IV SCH ×2 (12:59→20:33)
--- NOTE | 2018-09-07 13:10 | P.CRDCN ---
History of Present Illness History of present illness: Patient interviewed and examined. The mild rise in troponins noted. He has abdominal symptoms and abdominal pain and some tenderness with an ultrasound on the right upper quadrant that did not show any specific abnormality. I spoke to the medical doctors and I would like him to get a CT of the abdomen His troponins could be a result of a non-Q-wave [place] or it could be a result of a viral myocarditis given his GI symptoms I discussed this with Dr. Johnson and I did advise an elective coronary angiogram prior to discharge I will maximize his medications in the interim Past Medical History Past Medical History: Cancer, COPD, Pneumonia, Pulmonary Embolus (PE) Additional Past Medical History / Comment(s): HX OF LEUKEMIA (RECIEVED CHEMO- LAST 1983) hx ulcers around the time he was receiving chemo , HAND TREMORS, HX OF PEX2 LEFT LUNG when receivng chemo, BACK AND LEFT HIP PAIN., hx of anemia has had blood transfusions and iron infusions, sciatic nerve pain History of Any Multi-Drug Resistant Organisms: None Reported Past Surgical History: Hernia Repair, Joint Replacement, Orthopedic Surgery Additional Past Surgical History / Comment(s): ANNIKA HIP SURGERY, LEFT TOTAL HIP, PORT FOR CHEMO INSERTED AND REMOVED. , NOSE SURGERY.egd/colonoscopy/polypectomy Past Anesthesia/Blood Transfusion Reactions: No Reported Reaction Additional Past Anesthesia/Blood Transfusion Reaction / Comment(s): blood transfusion-no reaction Smoking Status: Current every day smoker - Past Family History Father Family Medical History: Cancer Additional Family Medical History / Comment(s): LUNG CA Mother Family Medical History: Cancer Additional Family Medical History / Comment(s): LUNG CANCER Medications and Allergies Home Medications Medication Instructions Recorded Confirmed Type Megestrol [Megace] 400 mg PO BID 09/06/18 09/06/18 History Allergies Allergy/AdvReac Type Severity Reaction Status Date / Time Paper Tape AdvReac Unknown Red , Uncoded 09/06/18 13:52 Irritated Skin Physical Exam Vitals: Vital Signs Temp Pulse Pulse Resp BP BP Pulse Ox 09/07/18 11:14 80 20 113/68 100 09/07/18 09:37 97.1 F L 89 20 115/70 97 09/07/18 03:11 97.3 F L 98 16 109/73 99 09/06/18 23:42 97.4 F L 107 H 18 117/77 99 09/06/18 22:27 88 18 105/69 97 09/06/18 19:30 92 15 99/69 98 09/06/18 18:38 85 16 93/63 98 09/06/18 17:46 85 16 106/72 99 09/06/18 16:50 84/67 09/06/18 16:05 97 16 100/68 100 09/06/18 14:27 84 15 101/66 97 09/06/18 14:05 78 16 114/85 99 09/06/18 13:46 97.1 F L 74 18 105/77 98 Intake and Output 09/06/18 09/07/18 09/07/18 22:59 06:59 14:59 Intake Total 10 680 Output Total 300 Balance 10 380 Intake: IV 10 0.9 10 Intake, IV Titration 200 Amount cefTRIAXone 2,000 mg In 100 Sodium Chloride 0.9% 100 ml @ 100 mls/hr IVPB Q24HR [facility] Rx#:[id number] metroNIDAZOLE-NS PMX 500 100 mg In Saline 1 100ml.bag @ 100 mls/hr IVPB Q8HR [facility] Rx#:[id number] Oral 480 Output: Urine 300 Other: Voiding Method Urinal Urinal # Voids 1 # Bowel Movements 2 Weight 72.5 kg Results 09/07/18 02:41 09/06/18 14:00 Cardiac Enzymes 09/06/18 09/06/18 09/06/18 Range/Units 14:00 14:00 20:48 AST 21 (17-59) U/L CK-MB (CK-2) 0.4 1.0 (0.0-2.4) ng/mL Troponin I 0.030 0.138 H* (0.000-0.034) ng/mL 09/07/18 Range/Units 02:41 AST (17-59) U/L CK-MB (CK-2) 1.5 (0.0-2.4) ng/mL Troponin I 0.201 H* (0.000-0.034) ng/mL Coagulation 09/06/18 09/07/18 Range/Units 14:00 09:20 PT 10.0 10.4 (9.0-12.0) sec APTT 22.4 22.1 (22.0-30.0) sec Lipids 09/07/18 Range/Units 02:41 Triglycerides 120 (<150) mg/dL Cholesterol 170 (<200) mg/dL HDL Cholesterol 43 (40-60) mg/dL CBC 09/06/18 09/07/18 Range/Units 14:00 02:41 WBC 19.3 H 25.8 H (3.8-10.6) k/uL RBC 3.96 L 4.05 L (4.30-5.90) m/uL Hgb 13.0 13.3 (13.0-17.5) gm/dL Hct 39.5 41.4 (39.0-53.0) % Plt Count 425 393 (150-450) k/uL Comprehensive Metabolic Panel 09/06/18 Range/Units 14:00 Sodium 136 L (137-145) mmol/L Potassium 4.0 (3.5-5.1) mmol/L Chloride 105 (98-107) mmol/L Carbon Dioxide 23 (22-30) mmol/L BUN 9 (9-20) mg/dL Creatinine 0.62 L (0.66-1.25) mg/dL Glucose 139 H (74-99) mg/dL Calcium 8.6 (8.4-10.2) mg/dL AST 21 (17-59) U/L ALT 18 L (21-72) U/L Alkaline Phosphatase 140 H (38-126) U/L Total Protein 5.7 L (6.3-8.2) g/dL Albumin 2.7 L (3.5-5.0) g/dL Current Medications Generic Name Dose Route Start Last Admin Trade Name Freq PRN Reason Stop Dose Admin Albuterol/Ipratropium 3 ml 09/07/18 10:00 Duoneb 0.5 Mg-3 Mg/3 Ml Soln INHALATION RT-QID PRN Shortness Of Breath Or Wheezing Aspirin 325 mg 09/07/18 09:00 09/07/18 09:11 Aspirin PO 325 mg DAILY LASHAUN Administration Budesonide/Formoterol Fumarate 2 puff 09/07/18 20:00 Symbicort 160-4.5 Mcg Inhaler INHALATION RT-BID LASHAUN Metronidazole 500 mg/ IV 100 mls @ 100 mls/hr 09/07/18 10:00 09/07/18 12:58 Solution IVPB 100 mls/hr Q8HR LASHAUN Administration Ceftriaxone Sodium 2,000 mg/ 100 mls @ 100 mls/hr 09/07/18 10:15 09/07/18 11: 34 Sodium Chloride IVPB 100 mls/hr Q24HR LASHAUN Administration Sodium Chloride 1,000 mls @ 125 mls/hr 09/07/18 12:30 09/07/18 12:59 Saline 0.9% IV 125 mls/hr .Q8H LASHAUN Administration Metoprolol Tartrate 12.5 mg 09/07/18 09:15 09/07/18 09:10 Lopressor PO 12.5 mg BID LASHAUN Administration Naloxone HCl 0.2 mg 09/06/18 17:37 Narcan IV Q2M PRN Opioid Reversal Nicotine 1 patch 09/07/18 11:15 09/07/18 11:42 Habitrol 21mg/24hr Patch TRANSDERM 1 patch DAILY LASHAUN Administration Nitroglycerin 0.4 mg 09/06/18 17:40 Nitrostat SUBLINGUAL Q5M PRN Chest Pain Pantoprazole Sodium 40 mg 09/07/18 09:00 09/07/18 09:13 Protonix IVP 40 mg BID LASHAUN Administration Intake and Output 09/06/18 09/07/18 09/07/18 22:59 06:59 14:59 Intake Total 10 680 Output Total 300 Balance 10 380 Intake: IV 10 0.9 10 Intake, IV Titration 200 Amount cefTRIAXone 2,000 mg In 100 Sodium Chloride 0.9% 100 ml @ 100 mls/hr IVPB Q24HR [facility] Rx#:[id number] metroNIDAZOLE-NS PMX 500 100 mg In Saline 1 100ml.bag @ 100 mls/hr IVPB Q8HR [facility] Rx#:[id number] Oral 480 Output: Urine 300 Other: Voiding Method Urinal Urinal # Voids 1 # Bowel Movements 2 Weight 72.5 kg 09/07/18 02:41 09/06/18 14:00
[2018-09-07] MEDS: SYMBICORT 160-4.5 MCG INHALER INHALATION SCH (19:31)
[2018-09-07] MEDS: ACETAMINOPHEN TAB 325 MG TAB PO PRN (21:07)
--- NOTE | 2018-09-08 00:15 | CONS ---
CONSULTATION DATE OF SERVICE: 09/07/2018 HISTORY: This is a 58-year-old gentleman who has been admitted to [facility] with chest discomfort with a non-Q-wave [place]. The patient also noted some abdominal pain mostly in the right lower quadrant. The patient had x2 bloody stools yesterday and is guaiac positive. The patient has a history of chronic peripheral vascular disease. The patient was at [facility] [place] about 2 months ago and at that time patient had CT of the abdomen with runoff which showed aortoiliac occlusive disease. The patient was sent to [facility] and the patient was seen at [facility] and told that he has a chronic occlusive disease and patient came back to [place]. The patient also has a history of chronic lymphatic leukemia. The patient had a chemotherapy at [place] in the past and now he is under the care of Dr. [place]. PERSONAL HISTORY: The patient has a history of smoking, continues to smoke. PAST MEDICAL HISTORY: Includes history of lymphatic leukemia and had a chemotherapy, history of COPD, history of pneumonia, history of pulmonary embolism. SURGICAL HISTORY: Patient had a bilateral hip replacement done in the past. The patient also had a hernia repair done in the past. PHYSICAL EXAMINATION: Patient was seen in his room. He was lying comfortably in bed. He had some right lower quadrant abdominal pain. He has a history of chronic peripheral vascular disease and he has disabling claudication. On examination, neck is supple. Chest is clear. Abdomen has tenderness in the right lower quadrant. No mass palpable. Femoral pulses are not palpable. There are present by the Doppler. Both feet have no pulses, but there is a capillary refill noted. No motor function present. A CT scan showed patient has aortic occlusion with bilateral iliac occlusion with some collaterals filling the femorals. IMPRESSION: Aortoiliac occlusive disease, which is chronic in nature. The patient also has atherosclerosis disease of the superficial femoral artery bilateral. I had a long discussion with the patient and his . If the patient needs surgical intervention that will be major surgical intervention, most likely aortobifemoral bypass graft. The patient does not want to go for any major surgical intervention and has agreed. In the meantime, patient will be treated for his colitis and lower GI bleed. We will follow with you. MMODL / IJN: [id number] /
[2018-09-08] MEDS: SODIUM CHLORIDE 0.9% 1,000 ML IV SCH ×3 (05:08→20:28)
[2018-09-08 06:46] LABS: Anisocytosis Slight; Basophils # (A) 0.1 k/uL (0-0.2); Basophils % (A) 0 %; Eosinophils # (A) 0.2 k/uL (0-0.7); Eosinophils % (A) 1 %; HCT 38.5 % (39.0-53.0); HGB 12.5 gm/dL (13.0-17.5); Lymphocytes # (A) 0.8 k/uL (1.0-4.8); Lymphocytes % (A) 4 %; MCH 32.7 pg (25.0-35.0); MCHC 32.4 g/dL (31.0-37.0); MCV 100.9 fL (80.0-100.0); Macrocytosis Slight; Monocytes # (A) 0.5 k/uL (0-1.0); Monocytes % (A) 2 %; Neutrophils # (A) 20.2 k/uL (1.3-7.7); Neutrophils % (A) 93 %; Platelet Count 333 k/uL (150-450); RBC 3.82 m/uL (4.30-5.90); RDW 16.3 % (11.5-15.5); WBC 21.8 k/uL (3.8-10.6)
[2018-09-08 06:57] LABS: Albumin 2.4 g/dL (3.5-5.0); Anion Gap 6 mmol/L; Blood Urea Nitrogen 4 mg/dL (9-20); Calcium 7.9 mg/dL (8.4-10.2); Carbon Dioxide 24 mmol/L (22-30); Chloride 103 mmol/L (98-107); Glucose 97 mg/dL (74-99); Sodium 133 mmol/L (137-145); Total Bilirubin 0.7 mg/dL (0.2-1.3); Total Protein 5.1 g/dL (6.3-8.2)
[2018-09-08 07:09] LABS: ALT 15 U/L (21-72); AST 15 U/L (17-59); Alkaline Phosphatase 106 U/L (38-126); Potassium 3.8 mmol/L (3.5-5.1)
[2018-09-08] MEDS: SYMBICORT 160-4.5 MCG INHALER INHALATION SCH ×2 (07:55→21:05)
[2018-09-08] MEDS: cefTRIAXone 2,000 MG in SODIUM CHLORIDE 0.9% 100 ML IVPB SCH (08:06)
[2018-09-08] MEDS: NICOTINE 21MG/24HR PATCH TRANSDERM SCH (08:07)
[2018-09-08] MEDS: ASPIRIN 325 MG TAB PO SCH (08:07)
[2018-09-08] MEDS: METOPROLOL TARTRATE 12.5 MG TAB PO SCH ×2 (08:07→20:13)
[2018-09-08] MEDS: PANTOPRAZOLE 40 MG/10 ML VIAL IVP SCH ×2 (08:07→20:13)
[2018-09-08] MEDS: metroNIDAZOLE-NS PMX 500 MG in SALINE 1 100ML.BAG IVPB SCH (10:20)
--- NOTE | 2018-09-08 10:51 | P.CONS ---
History of Present Illness - Reason for Consult Consult date: 09/07/18 Blood per rectum Requesting physician: Robbie Kovacs - Chief Complaint Blood per rectum - History of Present Illness The patient is a pleasant 58-year-old with a medical history significant for COPD, PE, pneumonia and dyslipidemia who presented to the hospital with complaints of chest pain and pressure. He reports sharp pain diffusely in his abdomen and chest waxing and waning. This is been present for approximately 3 days. In addition he reports diarrhea. He reports having loose bowel movements every 1-1/2-2 hours. He reports 3 episodes of blood with the bowel movements. He reports his last colonoscopy was approximately 3 years ago at which time polyps were removed. The patient had a computed tomography scan done which showed mild to moderate right enteritis in the distal small bowel with suggestion of possible colitis. Hemoglobin was stable on presentation trending from 13-13.3. He did have stool testing which was positive for occult blood. Review of Systems REVIEW OF SYSTEMS: CARDIO: Denies any chest pain or palpitations. PULMONARY: Denies any shortness of breath or wheezing. GENITOURINARY: No dysuria or hematuria. MUSCULOSKELETAL: No weakness reported. SKIN: Denies any new rashes or lesions, jaundice or pallor. PSYCHIATRIC: Denies any depression or anxiety. NEUROLOGY: Denies headache, denies any new focal deficits. EARS: No tinnitus, discharge or new hearing loss. NOSE: No discharge or congestion. EYES: No pain in eyes or change in vision. CONSTITUTIONAL: No recent weight loss. No fever, chills, night sweats. Past Medical History Past Medical History: Cancer, COPD, Pneumonia, Pulmonary Embolus (PE) Additional Past Medical History / Comment(s): HX OF LEUKEMIA (RECIEVED CHEMO- LAST 1983) hx ulcers around the time he was receiving chemo , HAND TREMORS, HX OF PEX2 LEFT LUNG when receivng chemo, BACK AND LEFT HIP PAIN., hx of anemia has had blood transfusions and iron infusions, sciatic nerve pain History of Any Multi-Drug Resistant Organisms: None Reported Past Surgical History: Hernia Repair, Joint Replacement, Orthopedic Surgery Additional Past Surgical History / Comment(s): ANNIKA HIP SURGERY, LEFT TOTAL HIP, PORT FOR CHEMO INSERTED AND REMOVED. , NOSE SURGERY.egd/colonoscopy/polypectomy Past Anesthesia/Blood Transfusion Reactions: No Reported Reaction Additional Past Anesthesia/Blood Transfusion Reaction / Comm: blood transfusion- no reaction Smoking Status: Current every day smoker - Past Family History Father Family Medical History: Cancer Additional Family Medical History / Comment(s): LUNG CA Mother Family Medical History: Cancer Additional Family Medical History / Comment(s): LUNG CANCER Medications and Allergies Home Medications Medication Instructions Recorded Confirmed Type Megestrol [Megace] 400 mg PO BID 09/06/18 09/06/18 History Allergies Allergy/AdvReac Type Severity Reaction Status Date / Time Paper Tape AdvReac Unknown Red , Uncoded 09/06/18 13:52 Irritated Skin Physical Exam Vitals: Vital Signs Temp Pulse Resp BP Pulse Ox 09/07/18 20:00 90 18 91/56 97 09/07/18 16:51 99 09/07/18 16:00 97.3 F L 98 18 119/84 99 09/07/18 11:14 80 20 113/68 100 09/07/18 09:37 97.1 F L 89 20 115/70 97 09/07/18 03:11 97.3 F L 98 16 109/73 99 Intake and Output 09/07/18 09/07/18 09/08/18 14:59 22:59 06:59 Intake Total 680 480 Output Total 300 Balance 380 480 Intake: Intake, IV Titration 200 Amount cefTRIAXone 2,000 mg In 100 Sodium Chloride 0.9% 100 ml @ 100 mls/hr IVPB Q24HR [facility] Rx#:[id number] metroNIDAZOLE-NS PMX 500 100 mg In Saline 1 100ml.bag @ 100 mls/hr IVPB Q8HR [facility] Rx#:[id number] Oral 480 480 Output: Urine 300 Other: Voiding Method Urinal Toilet Urinal # Voids 1 # Bowel Movements 2 On physical examination, patient appears comfortable in no apparent distress. HEAD: Normocephalic, atraumatic. EYES: No scleral icterus. No conjunctival injection. MOUTH: No lesions, tongue midline. NECK: Trachea midline, no gross abnormalities. CHEST: Clear to auscultation with no wheezing or rhonchi appreciated. HEART: Regular rate and rhythm. ABDOMEN: Soft, obese. Bowel sounds are positive. No organomegaly. No guarding or rigidity. EXTREMITIES: No pedal edema. SKIN: No rashes, no jaundice. NEUROLOGIC: Alert and oriented x3. No focal deficits. Results CBC & Chem 7: 09/08/18 05:54 09/08/18 05:54 Labs: Abnormal Lab Results - Last 24 Hours (Table) 09/07/18 09/07/18 09/07/18 Range/Units 02:41 02:41 02:41 WBC 25.8 H (3.8-10.6) k/uL RBC 4.05 L (4.30-5.90) m/uL MCV 102.1 H (80.0-100.0) fL RDW 16.0 H (11.5-15.5) % Neutrophils # 23.7 H (1.3-7.7) k/uL Troponin I 0.201 H* (0.000-0.034) ng/mL LDL Cholesterol, Calc 103 H (0-99) mg/dL Vitamin B12 (200.0-944.0) pg/mL 09/07/18 Range/Units 10:45 WBC (3.8-10.6) k/uL RBC (4.30-5.90) m/uL MCV (80.0-100.0) fL RDW (11.5-15.5) % Neutrophils # (1.3-7.7) k/uL Troponin I (0.000-0.034) ng/mL LDL Cholesterol, Calc (0-99) mg/dL Vitamin B12 1157.0 H (200.0-944.0) pg/mL Assessment and Plan (1) Enteritis Narrative/Plan: Patient was CT findings suggestive of enteritis in the setting of loose stool and 3 bowel movements containing blood. Likely represents a infectious etiology , cannot rule out ischemia, or other process. Current Visit: Yes Status: Acute Code(s): K52.9 - NONINFECTIVE GASTROENTERITIS AND COLITIS, UNSPECIFIED SNOMED Code(s): 99116846 (2) Blood per rectum Narrative/Plan: In the setting of loose stool this may represent hemorrhoidal bleeding, differential also includes infectious or ischemic etiology. Current Visit: Yes Status: Acute Code(s): K62.5 - HEMORRHAGE OF ANUS AND RECTUM SNOMED Code(s): 47238815 Plan: Supportive care Continue antibiotics Continue to monitor hemoglobin and transfuse as needed Diet as tolerated Stool studies pending No plan for endoscopic evaluation at this time, if patient's symptoms worsen or he has a significant fall in hemoglobin will consider further workup at that time Thank you for allowing us to participate in the care of this patient we will continue to follow
--- NOTE | 2018-09-08 11:06 | P.CNOR ---
History of Present Illness - [facility] Consult date: 09/08/18 Consult reason: back pain History of present illness: The patient's a 58-year-old male who presents with a several month history of bilateral leg pain and numbness. He denies any bowel or bladder incontinence. Normally he ambulates with a cane. His pain seems to worse when he is walking. He denies any traumatic event. Review of Systems Constitutional: Reports as per HPI Musculoskeletal: Reports leg numbness/tingling, Reports low back pain Neurological: Reports numbness Past Medical History Past Medical History: Cancer, COPD, Pneumonia, Pulmonary Embolus (PE) Additional Past Medical History / Comment(s): HX OF LEUKEMIA (RECIEVED CHEMO- LAST 1983) hx ulcers around the time he was receiving chemo , HAND TREMORS, HX OF PEX2 LEFT LUNG when receivng chemo, BACK AND LEFT HIP PAIN., hx of anemia has had blood transfusions and iron infusions, sciatic nerve pain History of Any Multi-Drug Resistant Organisms: None Reported Past Surgical History: Hernia Repair, Joint Replacement (Left total hip arthroplasty with subsequent revision 2), Orthopedic Surgery Additional Past Surgical History / Comment(s): ANNIKA HIP SURGERY, LEFT TOTAL HIP, PORT FOR CHEMO INSERTED AND REMOVED. , NOSE SURGERY.egd/colonoscopy/polypectomy Past Anesthesia/Blood Transfusion Reactions: No Reported Reaction Additional Past Anesthesia/Blood Transfusion Reaction / Comm: blood transfusion- no reaction Smoking Status: Current every day smoker - Past Family History Father Family Medical History: Cancer Additional Family Medical History / Comment(s): LUNG CA Mother Family Medical History: Cancer Additional Family Medical History / Comment(s): LUNG CANCER Medications and Allergies Home Medications Medication Instructions Recorded Confirmed Type Megestrol [Megace] 400 mg PO BID 09/06/18 09/06/18 History Allergies Allergy/AdvReac Type Severity Reaction Status Date / Time Paper Tape AdvReac Unknown Red , Uncoded 09/06/18 13:52 Irritated Skin Physical Examination - Lumbar Spine Back pain: staying the same Nerve symptoms: tingling of leg or foot: left, right Tenderness with palpation: L/S junction (Nonpalpable pedal pulses bilaterally/ no focal motor deficits bilateral lower extremities) - L Spine: dermatomal strength & reflexes left Strength: hip extension: 5/5 Strength: knee flexion: 5/5 Strength: knee extension: 5/5 Strength: ankle dorsiflexion: 5/5 Strength: ankle plantar flexion: 5/5 Strength: ankle inversion: 5/5 Strength: ankle eversion: 5/5 Strength: great toe flexion: 5/5 Strength: great toe extension: 5/5 Other reflexes: clonus: negative Nerve sensory abnormalities: entire leg: yes (Patient states he has diffuse decreased light touch throughout both lower extremities) Nerve tests: straight leg raising tests: negative Results - Labs Labs: Abnormal Lab Results - Last 24 Hours (Table) 09/07/18 09/08/18 09/08/18 Range/Units 10:45 05:54 05:54 WBC 21.8 H (3.8-10.6) k/uL RBC 3.82 L (4.30-5.90) m/uL Hgb 12.5 L (13.0-17.5) gm/dL Hct 38.5 L (39.0-53.0) % MCV 100.9 H (80.0-100.0) fL RDW 16.3 H (11.5-15.5) % Neutrophils # 20.2 H (1.3-7.7) k/uL Lymphocytes # 0.8 L (1.0-4.8) k/uL Sodium 133 L (137-145) mmol/L BUN 4 L (9-20) mg/dL Creatinine 0.61 L (0.66-1.25) mg/dL Calcium 7.9 L (8.4-10.2) mg/dL AST 15 L (17-59) U/L ALT 15 L (21-72) U/L Total Protein 5.1 L (6.3-8.2) g/dL Albumin 2.4 L (3.5-5.0) g/dL Vitamin B12 1157.0 H (200.0-944.0) pg/mL H & H 09/06/18 09/07/18 09/08/18 Range/Units 14:00 02:41 05:54 Hgb 13.0 13.3 12.5 L (13.0-17.5) gm/dL Hct 39.5 41.4 38.5 L (39.0-53.0) % Coagulation 09/06/18 09/07/18 Range/Units 14:00 09:20 INR 0.9 1.0 (<1.2) Result Diagrams: 09/08/18 05:54 09/08/18 05:54 - Diagnostic results Lumbar AP/lateral x-ray: image reviewed (Moderate degenerative disc disease L5- S1/significant vascular calcifications) Assessment and Plan Assessment: Bilateral lower extremity numbness/severe peripheral vascular disease with likely vascular claudication and possible neurogenic claudication Plan: I recommend use of a walker for balance. The patient may benefit from a neurology consult. His symptoms are intermittent, and currently do not require analgesics. Time with Patient: Greater than 30
--- NOTE | 2018-09-08 11:08 | XR ---
EXAMINATION TYPE: XR lumbar spine 2 or 3V DATE OF EXAM: 09/08/2018 COMPARISON: None HISTORY: Sciatica TECHNIQUE: Three-view lumbar spine FINDINGS: There are 4 lumbar-type vertebral bodies. The L1 vertebral level appears to be transition. Articulating ribs appear to be present Vascular calcifications within the aorta. Some narrowing of the disc height at L5-S1 posteriorly is p resent. Remaining disc heights are preserved. Mild superior endplate compression of L1 may be present without significant loss of anterior vertebral body height. No posterior wall displacement is eviden t. IMPRESSION: 1. Degenerative disc change L5-S1. 2. Mild superior endplate compression of L1 may be present of indeterminate age. 3. Transitional vertebral level at L1
[2018-09-08] MEDS: ACETAMINOPHEN TAB 325 MG TAB PO PRN (13:24)
--- NOTE | 2018-09-08 14:06 | P.PN ---
Subjective Patient looks comfortable resting comfortably in bed still has abdominal discomfort no chest discomfort Blood pressure 90/60 mmHg pulse rate is in the 90s afebrile 98.1F Breath sounds are clear no rhonchi no crackles Abdomen mildly tender diffusely Extremities warm no edema Impression Patient presented with abdominal pain and chest discomfort. Mildly abnormal troponins but quite tender abdomen. A CT of the abdomen shows right-sided enteritis involving the small bowel loops and the terminal ileum as well as colitis Abnormal troponins myocardial injury acute possible non-Q-wave NC Suggest Medical treatment for coronary artery disease and non-Q-wave NC Continue treatment for colitis Discharge him once he is stable from a GI standpoint and he'll see Dr. Johnson with a week of discharge for further management Continue aspirin and statins and low-dose beta blockers Objective - Vital Signs Vital signs: Vital Signs Temp 98.1 F 09/08/18 12:10 Pulse 92 09/08/18 12:10 Resp 18 09/08/18 12:10 BP 90/62 09/08/18 12:10 Pulse Ox 99 09/08/18 12:10 Intake & Output 09/07/18 09/08/18 09/08/18 18:59 06:59 18:59 Intake Total 922 093 6005 Output Total 300 500 Balance 824 427 6396 Weight 69.3 kg Intake: Intake, IV Titration 200 1700 Amount Sodium Chloride 0.9% 1, 1500 000 ml @ 125 mls/hr IV . Q8H LASHA[facility] Rx#:[id number] cefTRIAXone 2,000 mg In 100 100 Sodium Chloride 0.9% 100 ml @ 100 mls/hr IVPB Q24HR LASHA[facility] Rx#:[id number] metroNIDAZOLE-NS PMX 500 100 100 mg In Saline 1 100ml.bag @ 100 mls/hr IVPB Q8HR LASHAUN Rx#:[id number] Oral 480 480 360 Output: Urine 300 500 Other: Voiding Method Urinal Toilet Toilet Urinal Urinal # Voids 1 1 2 # Bowel Movements 2 2 - Labs CBC & Chem 7: 09/08/18 05:54 09/08/18 05:54 Labs: Abnormal Lab Results - Last 24 Hours (Table) 09/07/18 09/08/18 09/08/18 Range/Units 10:45 05:54 05:54 WBC 21.8 H (3.8-10.6) k/uL RBC 3.82 L (4.30-5.90) m/uL Hgb 12.5 L (13.0-17.5) gm/dL Hct 38.5 L (39.0-53.0) % MCV 100.9 H (80.0-100.0) fL RDW 16.3 H (11.5-15.5) % Neutrophils # 20.2 H (1.3-7.7) k/uL Lymphocytes # 0.8 L (1.0-4.8) k/uL Sodium 133 L (137-145) mmol/L BUN 4 L (9-20) mg/dL Creatinine 0.61 L (0.66-1.25) mg/dL Calcium 7.9 L (8.4-10.2) mg/dL AST 15 L (17-59) U/L ALT 15 L (21-72) U/L Total Protein 5.1 L (6.3-8.2) g/dL Albumin 2.4 L (3.5-5.0) g/dL Vitamin B12 1157.0 H (200.0-944.0) pg/mL Microbiology - Last 24 Hours (Table) 09/07/18 10:45 Blood Culture - Preliminary Blood No Growth after 24 hours
[2018-09-08] MEDS: DICYCLOMINE 10 MG CAP PO PRN ×2 (15:30→23:12)
[2018-09-08] MEDS: metroNIDAZOLE 500 MG TAB PO SCH ×2 (15:30→20:13)
--- NOTE | 2018-09-08 21:16 | PN ---
PROGRESS NOTE DATE OF SERVICE: 09/08/2018 This 58-year-old gentleman who was admitted with multiple medical problems had abdominal and chest discomfort. The troponin was found to be indeterminate and elevated. A CT scan of abdomen showed possible enteritis. Gastroenterology and cardiology following the patient closely. The CT scan showed mild to moderate right- sided enteritis and ileus also. Orthopedic consultation has been sought today for bilateral leg and numb pain for possible peripheral vascular disease and the patient is also evaluated by Dr. Chu also. PAST MEDICAL HISTORY: Reviewed. REVIEW OF SYSTEMS: CARDIOVASCULAR: As mentioned earlier. RESPIRATORY: As mentioned earlier. GASTROINTESTINAL: As mentioned earlier. : As mentioned earlier. CENTRAL NERVOUS SYSTEM: As mentioned earlier. CURRENT MEDICATIONS: Reviewed and include: 1. Tylenol 650 q.6h. 2. DuoNeb q.i.d. and p.r.n. 3. Aspirin. 4. Symbicort 160/4.5 b.i.d. 5. Rocephin 1 g daily. 6. Lopressor. 7. Flagyl. 8. Narcan. 9. Habitrol 21. 10.Protonix. PHYSICAL EXAM: Patient is alert, oriented x3. Pulse is 92, blood pressure 81/58, respiration 18, temperature is 97 degrees, pulse ox 98% on room air. HEENT: Conjunctivae normal. Oral mucosa moist. NECK: No jugular venous distention. No carotid bruit. No lymph node enlargement. Cardiovascular systems: S1, S2. Respiration: Breath sounds diminished in the bases. Scattered rhonchi and crackles. ABDOMEN: Soft. Mild diffuse discomfort. LEGS: Are no edema. No swelling. CENTRAL NERVOUS SYSTEM: No focal deficits. LABS: WBC 21.2, hemoglobin 12.5, sodium is 133 and vitamin B12 1157. C diff is negative. ASSESSMENT: 1. Possible acute non ST-segment elevation myocardial infarction present on admission. 2. Abdominal pain, right lower quadrant, possible right-sided enteritis. 3. Aortoiliac vascular occlusion with peripheral artery disease. 4. Possible acute ischemic colitis and secondary to acute lower gastrointestinal bleeding. 5. Acute lymphocytic leukemia history in remission. 6. History of chronic obstructive pulmonary disease. 7. Neutrophilic leukocytosis. 8. Increased WBC. 9. Increased MCV. 10.Hyponatremia. 11.Hypoalbuminemia. RECOMMENDATIONS AND DISCUSSION: In this 58-year-old gentleman who presented with multiple complex medical issues. We will monitor the patient closely, continue the current medications, management and symptomatic treatment. Otherwise, closely follow with Cardiology and Gastroenterology. The prognosis extremely guarded because of multiple complex medical issues as detailed above. The patient is currently being treated with antiplatelet agents, which we will continue along with antibiotics and other measures. We will cut down the IV fluids. The prognosis is guarded. Further recommendations to follow. MMODL / IJN: [id number] /
--- NOTE | 2018-09-08 22:16 | P.PN ---
Subjective Progress Note Date: 09/08/18 Principal diagnosis: Enteritis, blood per rectum Patient still reporting some loose bowel movements. Still having some diffuse abdominal pain, unable to receive analgesia secondary to low blood pressure. Tolerating diet. Objective - Vital Signs Vital signs: Vital Signs Temp 96.8 F L 09/08/18 20:00 Pulse 94 09/08/18 20:00 Resp 15 09/08/18 20:00 BP 98/65 09/08/18 20:00 Pulse Ox 100 09/08/18 20:00 Intake & Output 09/08/18 09/08/18 09/09/18 06:59 18:59 06:59 Intake Total 480 2540 Output Total 500 Balance 480 2040 Weight 69.3 kg Intake: Intake, IV Titration 1700 Amount Sodium Chloride 0.9% 1, 1500 000 ml @ 125 mls/hr IV . Q8H [facility] Rx#:[id number] cefTRIAXone 2,000 mg In 100 Sodium Chloride 0.9% 100 ml @ 100 mls/hr IVPB Q24HR [facility] Rx#:[id number] metroNIDAZOLE-NS PMX 500 100 mg In Saline 1 100ml.bag @ 100 mls/hr IVPB Q8HR [facility] Rx#:[id number] Oral 480 840 Output: Urine 500 Other: Voiding Method Toilet Toilet Toilet Urinal Urinal Urinal # Voids 1 2 # Bowel Movements 2 - Exam On physical examination, patient appears comfortable in no apparent distress. HEAD: Normocephalic, atraumatic. EYES: No scleral icterus. No conjunctival injection. MOUTH: No lesions, tongue midline. NECK: Trachea midline, no gross abnormalities. CHEST: Clear to auscultation with no wheezing or rhonchi appreciated. HEART: Regular rate and rhythm. ABDOMEN: Soft, obese. Bowel sounds are positive. No organomegaly. No guarding or rigidity. EXTREMITIES: No pedal edema. SKIN: No rashes, no jaundice. NEUROLOGIC: Alert and oriented x3. No focal deficits. - Labs CBC & Chem 7: 09/08/18 05:54 09/08/18 05:54 Labs: Abnormal Lab Results - Last 24 Hours (Table) 09/08/18 09/08/18 Range/Units 05:54 05:54 WBC 21.8 H (3.8-10.6) k/uL RBC 3.82 L (4.30-5.90) m/uL Hgb 12.5 L (13.0-17.5) gm/dL Hct 38.5 L (39.0-53.0) % MCV 100.9 H (80.0-100.0) fL RDW 16.3 H (11.5-15.5) % Neutrophils # 20.2 H (1.3-7.7) k/uL Lymphocytes # 0.8 L (1.0-4.8) k/uL Sodium 133 L (137-145) mmol/L BUN 4 L (9-20) mg/dL Creatinine 0.61 L (0.66-1.25) mg/dL Calcium 7.9 L (8.4-10.2) mg/dL AST 15 L (17-59) U/L ALT 15 L (21-72) U/L Total Protein 5.1 L (6.3-8.2) g/dL Albumin 2.4 L (3.5-5.0) g/dL Microbiology - Last 24 Hours (Table) 09/08/18 11:55 Stool Culture - Preliminary Stool 09/07/18 10:45 Blood Culture - Preliminary Blood No Growth after 24 hours Assessment and Plan (1) Enteritis Narrative/Plan: Patient was CT findings suggestive of enteritis in the setting of loose stool and 3 bowel movements containing blood. Likely represents a infectious etiology , cannot rule out ischemia, or other process. Current Visit: Yes Status: Acute Code(s): K52.9 - NONINFECTIVE GASTROENTERITIS AND COLITIS, UNSPECIFIED SNOMED Code(s): 91051716 (2) Blood per rectum Narrative/Plan: In the setting of loose stool this may represent hemorrhoidal bleeding, differential also includes infectious or ischemic etiology. Current Visit: Yes Status: Acute Code(s): K62.5 - HEMORRHAGE OF ANUS AND RECTUM SNOMED Code(s): 50917651 Plan: Supportive care Continue antibiotics Continue to monitor hemoglobin and transfuse as needed Diet as tolerated Testing for C. diff was negative No plan for endoscopic evaluation at this time, if patient's symptoms worsen or he has a significant fall in hemoglobin will consider further workup at that time Thank you for allowing us to participate in the care of this patient we will continue to follow
[2018-09-09 06:38] LABS: Anisocytosis Slight; Basophils % (A) 0 %; Eosinophils # (A) 0.3 k/uL (0-0.7); Eosinophils % (A) 2 %; HGB 11.5 gm/dL (13.0-17.5); Lymphocytes # (A) 1.1 k/uL (1.0-4.8); Lymphocytes % (A) 6 %; MCH 32.9 pg (25.0-35.0); MCHC 32.7 g/dL (31.0-37.0); MCV 100.4 fL (80.0-100.0); Macrocytosis Slight; Mean Platelet Volume 7.6; Monocytes # (A) 0.4 k/uL (0-1.0); Monocytes % (A) 2 %; Neutrophils # (A) 17.4 k/uL (1.3-7.7); Neutrophils % (A) 89 %; Platelet Count 317 k/uL (150-450); RBC 3.48 m/uL (4.30-5.90); RDW 16.5 % (11.5-15.5); WBC 19.4 k/uL (3.8-10.6)
[2018-09-09] MEDS: SYMBICORT 160-4.5 MCG INHALER INHALATION SCH ×2 (07:56→20:56)
[2018-09-09] MEDS: cefTRIAXone 2,000 MG in SODIUM CHLORIDE 0.9% 100 ML IVPB SCH (08:20)
[2018-09-09] MEDS: NICOTINE 21MG/24HR PATCH TRANSDERM SCH (08:20)
[2018-09-09] MEDS: DICYCLOMINE 10 MG CAP PO PRN (08:20)
[2018-09-09] MEDS: metroNIDAZOLE 500 MG TAB PO SCH ×3 (08:21→21:15)
[2018-09-09] MEDS: METOPROLOL TARTRATE 12.5 MG TAB PO SCH ×2 (08:21→21:15)
[2018-09-09] MEDS: ASPIRIN 325 MG TAB PO SCH (08:21)
[2018-09-09] MEDS: PANTOPRAZOLE 40 MG/10 ML VIAL IVP SCH ×2 (09:04→21:15)
[2018-09-09 09:24] VITALS: RESP 18
[2018-09-09] MEDS: SODIUM CHLORIDE 0.9% 1,000 ML IV SCH (12:37)
--- NOTE | 2018-09-09 16:02 | P.PN ---
Subjective Patient is doing much better now. He has no chest discomfort or breathing trouble he looks a lot better. Although he continues to have discomfort in his abdomen that also has improved On examination his blood pressure is 91/57 mmHg pulse rate in the 70s afebrile Mildly tender abdomen but no rebound no guarding no rigidity Heart sounds S1 and S2 are normal no murmurs or gallop or rub Breath sounds are clear no rhonchi no crackles Extremities warm no edema impression Likely small non-Q-wave MD versus myocardial injury from nonischemic/ nonocclusive coronary causes Colitis Peripheral vascular disease Central aortic disease Suggest Continue cardiac medications for now. I would treat this gentleman medically for coronary artery disease/non-Q-wave MD and once his intestinal problems improve then coronary angiography may be considered as an outpatient. I would like him to see Dr. Johnson within the week of discharge. I I have already spoken to Dr. Johnson about this Objective - Vital Signs Vital signs: Vital Signs Temp 97.6 F 09/09/18 12:00 Pulse 76 09/09/18 12:00 Resp 18 09/09/18 12:00 BP 91/57 09/09/18 12:00 Pulse Ox 96 09/09/18 12:00 Intake & Output 09/08/18 09/09/18 09/09/18 18:59 06:59 18:59 Intake Total 2540 600 820 Output Total 500 200 Balance 2040 600 620 Weight 69.6 kg Intake: Intake, IV Titration 1700 820 Amount Sodium Chloride 0.9% 1, 1500 720 000 ml @ 60 mls/hr IV . [id number] [facility] Rx#:[id number] cefTRIAXone 2,000 mg In 100 100 Sodium Chloride 0.9% 100 ml @ 100 mls/hr IVPB Q24HR [facility] Rx#:[id number] metroNIDAZOLE-NS PMX 500 100 mg In Saline 1 100ml.bag @ 100 mls/hr IVPB Q8HR [facility] Rx#:[id number] Oral 840 600 Output: Urine 500 200 Other: Voiding Method Toilet Toilet Toilet Urinal Urinal Urinal # Voids 2 2 1 # Bowel Movements 2 2 1 - Labs CBC & Chem 7: 09/09/18 06:00 09/08/18 05:54 Labs: Abnormal Lab Results - Last 24 Hours (Table) 09/09/18 Range/Units 06:00 WBC 19.4 H (3.8-10.6) k/uL RBC 3.48 L (4.30-5.90) m/uL Hgb 11.5 L (13.0-17.5) gm/dL Hct 35.0 L (39.0-53.0) % MCV 100.4 H (80.0-100.0) fL RDW 16.5 H (11.5-15.5) % Neutrophils # 17.4 H (1.3-7.7) k/uL Microbiology - Last 24 Hours (Table) 09/07/18 10:45 Blood Culture - Preliminary Blood No Growth after 48 hours 09/08/18 11:55 Stool Culture - Preliminary Stool
--- NOTE | 2018-09-09 16:18 | PN ---
PROGRESS NOTE DATE OF SERVICE: 09/09/2018 This 58-year-old gentleman who was admitted with multiple medical problems including non-ST elevation myocardial infarction, also complaining of abdominal pain, back pain. No chest pain. No palpitations. No fever. Conservative line of management is recommended. Gastroenterology has seen the patient and also following the patient also for possible enteritis also and diffuse abdominal pain. No chest pain. No palpitations. No fever. EXAM: Alert and oriented times three. Pulse 69. Blood pressure is 73/50 and 90/50, respiration 16, temperature 98.4, pulse ox 98% on room air. HEENT: Conjunctivae normal. Neck is no jugular venous distention. CARDIOVASCULAR: S1, S2 muffled. Respirations: Breath sounds diminished in the bases. No rhonchi. No crackles. Abdomen is soft. Nontender. Nervous system: No focal deficits. LABS: WBC 19.3, hemoglobin 11.5, sodium 133. PAST MEDICAL HISTORY: Reviewed. REVIEW OF SYSTEMS: CARDIOVASCULAR: No angina or palpitations. Respiration: As mentioned earlier. GI mentioned earlier. : No dysuria. Nervous system as mentioned earlier. CURRENT MEDICATIONS ARE: 1. Tylenol 650 q.6h p.r.n. 2. Aspirin 320. 3. Symbicort 160/4.5 b.i.d. 4. Bentyl 10 mg t.i.d. p.r.n. 5. DuoNeb q.i.d. 6. Metoprolol 12.5 mg b.i.d. 7. Flagyl 500 mg p.o. t.i.d. 8. Naloxone. 9. Habitrol 21. 10.Nitro p.r.n. 11.Protonix 40 mg b.i.d. 12.IV fluids. ASSESSMENT: 1. Acute non ST-segment elevation myocardial infarction, present on admission. 2. Abdominal pain, right lower quadrant, possible right-sided enteritis. 3. Aortoiliac vascular occlusion with peripheral vascular disease and diffuse leg pains. 4. Possible acute ischemic colitis secondary to acute lower gastrointestinal bleeding. 5. Acute lymphocytic leukemia on remission. 6. Chronic obstructive pulmonary disease. 7. Neutrophilic leukocytosis. 8. Increased WBC. 9. Increased MCV. 10.Hyponatremia. 11.Hypoalbuminemia. RECOMMENDATIONS: Recommend to continue the current medications and continue symptomatic treatment. Otherwise, at this time, I recommend follow the patient closely. A 2D echo has been done which showed basal hypokinesia. Otherwise, lumbar spine x-ray showed ENT changes. The overall prognosis guarded because of multiple complex medical issues. See orders for details. Patient on empiric IV antibiotics. We will also obtain an infectious disease evaluation also. MMODL / IJN: [id number] /
--- NOTE | 2018-09-09 16:50 | P.CONS ---
History of Present Illness - Reason for Consult Consult date: 09/09/18 HX: Of ALL Requesting physician: Arnold Centeno - Chief Complaint Chest pain and pressure - History of Present Illness Mr. White is a patient of Dr. 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, He initially seen Dr. Boston in 2013 for anemia, he has received PRN Parental Iron infusions and monitored every couple months. He was last seen in [facility] and he was still waiting for CA clearance to follow-up with GI. He presented to Emergency a few days ago with complaints of chest pain, nausea and vomiting. Treatment was provided per medicine and cardiology for NSTEMI. He is feeling better. Oncology is now consulted for his known history of ALL. Review of Systems A 14 point review of systems assessed and completed and all negative except HPI Past Medical History Past Medical History: Cancer, COPD, Pneumonia, Pulmonary Embolus (PE) Additional Past Medical History / Comment(s): HX OF LEUKEMIA (RECIEVED CHEMO- LAST 1983) hx ulcers around the time he was receiving chemo , HAND TREMORS, HX OF PEX2 LEFT LUNG when receivng chemo, BACK AND LEFT HIP PAIN., hx of anemia has had blood transfusions and iron infusions, sciatic nerve pain History of Any Multi-Drug Resistant Organisms: None Reported Past Surgical History: Hernia Repair, Joint Replacement (Left total hip arthroplasty with subsequent revision 2), Orthopedic Surgery Additional Past Surgical History / Comment(s): ANNIKA HIP SURGERY, LEFT TOTAL HIP, PORT FOR CHEMO INSERTED AND REMOVED. , NOSE SURGERY.egd/colonoscopy/polypectomy Past Anesthesia/Blood Transfusion Reactions: No Reported Reaction Additional Past Anesthesia/Blood Transfusion Reaction / Comm: blood transfusion- no reaction Smoking Status: Current every day smoker - Past Family History Father Family Medical History: Cancer Additional Family Medical History / Comment(s): LUNG CA Mother Family Medical History: Cancer Additional Family Medical History / Comment(s): LUNG CANCER Medications and Allergies Home Medications Medication Instructions Recorded Confirmed Type Megestrol [Megace] 400 mg PO BID 09/06/18 09/06/18 History Allergies Allergy/AdvReac Type Severity Reaction Status Date / Time Paper Tape AdvReac Unknown Red , Uncoded 09/06/18 13:52 Irritated Skin Physical Exam Vitals: Vital Signs Temp Pulse Resp BP BP Pulse Ox 09/09/18 12:00 97.6 F 76 16 91/57 96 09/09/18 09:18 98.4 F 69 16 73/50 90/50 98 09/09/18 04:00 84 17 90/54 98 09/09/18 03:30 95 16 09/09/18 00:00 109 H 16 92/57 100 09/08/18 20:00 96.8 F L 94 15 98/65 100 Intake and Output 09/09/18 09/09/18 09/09/18 06:59 14:59 22:59 Intake Total 600 820 Output Total 200 Balance 600 620 Intake: Intake, IV Titration 820 Amount Sodium Chloride 0.9% 1, 720 000 ml @ 60 mls/hr IV . [id number] LASHAUN Rx#:[id number] cefTRIAXone 2,000 mg In 100 Sodium Chloride 0.9% 100 ml @ 100 mls/hr IVPB Q24HR LASHAUN Rx#:[id number] Oral 600 Output: Urine 200 Other: Voiding Method Toilet Urinal # Voids 2 1 # Bowel Movements 2 1 Weight 69.6 kg - Constitutional General appearance: cooperative, no acute distress - EENT Eyes: EOMI, PERRLA, dentition normal ENT: NA/AT, normal oropharynx - Neck No cervical or axillary lymphadenopathy Neck: normal ROM - Respiratory Respiratory: bilateral: diminished (bibasilar no increased effort) - Cardiovascular Rhythm: regularly irregular - Gastrointestinal General gastrointestinal: normal bowel sounds, soft, tenderness - Integumentary Integumentary: pale - Neurologic no focal defects Neurologic: CNII-XII intact - Musculoskeletal Musculoskeletal: generalized weakness, strength equal bilaterally - Psychiatric Psychiatric: A&O x's 3, appropriate affect, intact judgment & insight Results CBC & Chem 7: 09/09/18 06:00 09/08/18 05:54 Labs: Abnormal Lab Results - Last 24 Hours (Table) 09/09/18 Range/Units 06:00 WBC 19.4 H (3.8-10.6) k/uL RBC 3.48 L (4.30-5.90) m/uL Hgb 11.5 L (13.0-17.5) gm/dL Hct 35.0 L (39.0-53.0) % MCV 100.4 H (80.0-100.0) fL RDW 16.5 H (11.5-15.5) % Neutrophils # 17.4 H (1.3-7.7) k/uL Microbiology - Last 24 Hours (Table) 09/07/18 10:45 Blood Culture - Preliminary Blood No Growth after 48 hours 09/08/18 11:55 Stool Culture - Preliminary Stool CT scan - abdomen: report reviewed CT scan - pelvis: report reviewed Assessment and Plan Plan: Assessment and Recs: 1. Macrocytic Anemia - Chronic has known history of Parental Iron Infusion need - Check MMA - Recheck Chelan Studies and Ferritin 2. NSTEMI - Per Primary and Cardio 3. HX ALL: - Back in 2009, Remission Thank you for allowing us to participate in care of patient. I will await further tests and provide further recs if resonable, otherwise may continue follow-up for ALL and xCancer hx surveillance as outpatient, as well as prn Parental Iron Outpatient.
[2018-09-09 17:19] LABS: Anion Gap 10 mmol/L; Blood Urea Nitrogen 6 mg/dL (9-20); Calcium 7.7 mg/dL (8.4-10.2); Carbon Dioxide 22 mmol/L (22-30); Chloride 102 mmol/L (98-107); Glucose 85 mg/dL (74-99); Potassium 3.5 mmol/L (3.5-5.1); Sodium 134 mmol/L (137-145)
[2018-09-09 17:31] LABS: C Reactive Protein 250.3 mg/L (<10.0)
--- NOTE | 2018-09-09 18:56 | P.PN ---
Subjective Progress Note Date: 09/09/18 Principal diagnosis: Enteritis, blood per rectum The patient is feeling much better today. He is tolerating a diet. Abdominal pain is improved with Bentyl therapy. Objective - Vital Signs Vital signs: Vital Signs Temp 97.7 F 09/09/18 16:00 Pulse 80 09/09/18 16:00 Resp 18 09/09/18 16:00 BP 87/63 09/09/18 16:00 Pulse Ox 98 09/09/18 16:00 Intake & Output 09/08/18 09/09/18 09/09/18 18:59 06:59 18:59 Intake Total 2540 600 940 Output Total 500 625 Balance 2040 600 315 Weight 69.6 kg 69.6 kg Intake: Intake, IV Titration 1700 820 Amount Sodium Chloride 0.9% 1, 1500 720 000 ml @ 60 mls/hr IV . [id number] LASHAUN Rx#:[id number] cefTRIAXone 2,000 mg In 100 100 Sodium Chloride 0.9% 100 ml @ 100 mls/hr IVPB Q24HR LASHAUN Rx#:[id number] metroNIDAZOLE-NS PMX 500 100 mg In Saline 1 100ml.bag @ 100 mls/hr IVPB Q8HR LASHAUN Rx#:[id number] Oral 840 600 120 Output: Urine 500 625 Other: Voiding Method Toilet Toilet Toilet Urinal Urinal Urinal # Voids 2 2 1 # Bowel Movements 2 2 1 - Exam On physical examination, patient appears comfortable in no apparent distress. HEAD: Normocephalic, atraumatic. EYES: No scleral icterus. No conjunctival injection. MOUTH: No lesions, tongue midline. NECK: Trachea midline, no gross abnormalities. CHEST: Clear to auscultation with no wheezing or rhonchi appreciated. HEART: Regular rate and rhythm. ABDOMEN: Soft, obese. Bowel sounds are positive. No organomegaly. No guarding or rigidity. EXTREMITIES: No pedal edema. SKIN: No rashes, no jaundice. NEUROLOGIC: Alert and oriented x3. No focal deficits. - Labs CBC & Chem 7: 09/09/18 06:00 09/09/18 16:19 Labs: Abnormal Lab Results - Last 24 Hours (Table) 09/09/18 09/09/18 09/09/18 Range/Units 06:00 16:19 16:19 WBC 19.4 H (3.8-10.6) k/uL RBC 3.48 L (4.30-5.90) m/uL Hgb 11.5 L (13.0-17.5) gm/dL Hct 35.0 L (39.0-53.0) % MCV 100.4 H (80.0-100.0) fL RDW 16.5 H (11.5-15.5) % Neutrophils # 17.4 H (1.3-7.7) k/uL ESR 97 H (0-15) mm/hr Sodium 134 L (137-145) mmol/L BUN 6 L (9-20) mg/dL Creatinine 0.63 L (0.66-1.25) mg/dL Calcium 7.7 L (8.4-10.2) mg/dL C-Reactive Protein 250.3 H (<10.0) mg/L Microbiology - Last 24 Hours (Table) 09/07/18 10:45 Blood Culture - Preliminary Blood No Growth after 48 hours 09/08/18 11:55 Stool Culture - Preliminary Stool Assessment and Plan (1) Enteritis Narrative/Plan: Patient was CT findings suggestive of enteritis in the setting of loose stool and 3 bowel movements containing blood. Likely represents a infectious etiology , cannot rule out ischemia, or other process. Current Visit: Yes Status: Acute Code(s): K52.9 - NONINFECTIVE GASTROENTERITIS AND COLITIS, UNSPECIFIED SNOMED Code(s): 55690884 (2) Blood per rectum Narrative/Plan: In the setting of loose stool this may represent hemorrhoidal bleeding, differential also includes infectious or ischemic etiology. Current Visit: Yes Status: Acute Code(s): K62.5 - HEMORRHAGE OF ANUS AND RECTUM SNOMED Code(s): 99119696 Plan: Supportive care Continue antibiotics Continue to monitor hemoglobin and transfuse as needed Diet as tolerated Testing for C. diff was negative No plan for endoscopic evaluation at this time, if patient's symptoms worsen or he has a significant fall in hemoglobin will consider further workup at that time Patient's abdominal pain improved with the addition of Bentyl Thank you for allowing us to participate in the care of this patient we will continue to follow
[2018-09-10 06:23] LABS: Anisocytosis Slight; Basophils % (A) 0 %; Eosinophils # (A) 0.3 k/uL (0-0.7); Eosinophils % (A) 2 %; HCT 37.8 % (39.0-53.0); Lymphocytes # (A) 1.1 k/uL (1.0-4.8); Lymphocytes % (A) 8 %; MCH 32.4 pg (25.0-35.0); MCHC 31.7 g/dL (31.0-37.0); MCV 102.2 fL (80.0-100.0); Macrocytosis Slight; Mean Platelet Volume 7.6; Monocytes # (A) 0.3 k/uL (0-1.0); Monocytes % (A) 3 %; Neutrophils # (A) 11.5 k/uL (1.3-7.7); Neutrophils % (A) 86 %; Platelet Count 308 k/uL (150-450); RDW 16.5 % (11.5-15.5); WBC 13.4 k/uL (3.8-10.6)
[2018-09-10 06:54] LABS: Anion Gap 10 mmol/L; Calcium 7.6 mg/dL (8.4-10.2); Carbon Dioxide 20 mmol/L (22-30); Chloride 103 mmol/L (98-107); Glucose 63 mg/dL (74-99); Potassium 3.2 mmol/L (3.5-5.1); Sodium 133 mmol/L (137-145)
[2018-09-10 07:11] LABS: Blood Urea Nitrogen 6 mg/dL (9-20)
[2018-09-10] MEDS: SYMBICORT 160-4.5 MCG INHALER INHALATION SCH (07:48)
[2018-09-10] MEDS: SODIUM CHLORIDE 0.9% 1,000 ML IV SCH (08:13)
[2018-09-10] MEDS: NICOTINE 21MG/24HR PATCH TRANSDERM SCH (08:22)
[2018-09-10] MEDS: metroNIDAZOLE 500 MG TAB PO SCH ×2 (08:26→15:36)
[2018-09-10] MEDS: ASPIRIN 325 MG TAB PO SCH (08:26)
[2018-09-10] MEDS: PANTOPRAZOLE 40 MG/10 ML VIAL IVP SCH (08:26)
[2018-09-10] MEDS: METOPROLOL TARTRATE 12.5 MG TAB PO SCH (08:27)
[2018-09-10] MEDS: cefTRIAXone 2,000 MG in SODIUM CHLORIDE 0.9% 100 ML IVPB SCH (08:27)
--- NOTE | 2018-09-10 10:48 | P.PN ---
Subjective Progress Note Date: 09/10/18 This is a 58-year-old gentleman with no prior documented history of hypertension, no diabetes, no hyperlipidemia, he does smoke 2 packs of cigarettes per day, history of COPD, he also has a family history of premature coronary artery disease in his father who had a myocardial infarction at a young age. He states that he does follow with Dr. Karen Johnson in the office. Patient presented to the hospital with symptoms of chest tightness, he states that for the past couple of days he's been having intermittent chest tightness with associated diaphoresis. He's also noticed some numbness in his bilateral legs. Patient states that he's been having chest pressure and heaviness as well as a discomfort in his epigastric and abdominal region. Yesterday patient did have associated nausea and vomiting, and did have some episodes of loose stools. Chest x-ray on admission here did not reveal any acute cardiopulmonary process. Ultrasound of the abdomen was performed which revealed unremarkable sonographic examination of the right upper quadrant. EKG showed a normal sinus rhythm with nonspecific ST-T wave changes. White blood cell count on arrival 19.3, 25.8 this morning, hemoglobin 13, platelet count 393. Sodium 136, potassium 4.0, BUN 9, creatinine 0.6, lactic acid 1.6. Alkaline phosphatase 140 , initial troponin 0.030, subsequent troponin 0.1, 0.2. Cholesterol 170, triglycerides 120, LDL 103, HDL 43. At time of my examination this morning, patient complains of mild chest tightness, feels very thirsty, states he has not had anything to eat or drink in the past 24 hours. 09/10/2018 Patient was seen and examined this morning, overall feeling much better. Denies any chest discomfort, no dizziness, breathing is stable. Still having mild discomfort in his abdomen however significantly improved from admission here. Blood pressure this morning 90/50 with a heart rate in the 80s, 95% on room air. White blood cell count 13.4, hemoglobin 12, platelet count 308. Sodium 133, potassium 3.2, BUN 6, creatinine 0.6. C-reactive protein 250.3 Objective - Vital Signs Vital signs: Vital Signs Temp 97.7 F 09/10/18 04:00 Pulse 86 09/10/18 08:00 Resp 18 09/10/18 08:00 BP 74/57 09/10/18 08:00 Pulse Ox 95 09/10/18 08:00 Intake & Output 09/09/18 09/10/18 09/10/18 18:59 06:59 18:59 Intake Total 940 Output Total 625 675 Balance 315 -675 Weight 69.6 kg 69.6 kg Intake: Intake, IV Titration 820 Amount Sodium Chloride 0.9% 1, 720 000 ml @ 60 mls/hr IV . [id number] LASHAUN Rx#:[id number] cefTRIAXone 2,000 mg In 100 Sodium Chloride 0.9% 100 ml @ 100 mls/hr IVPB Q24HR LASHAUN Rx#:[id number] Oral 120 Output: Urine 625 675 Other: Voiding Method Toilet Toilet Urinal Urinal # Voids 1 1 # Bowel Movements 1 1 - Exam On physical examination, patient appears comfortable in no apparent distress. HEAD: Normocephalic, atraumatic. EYES: No scleral icterus. No conjunctival injection. MOUTH: No lesions, tongue midline. NECK: Trachea midline, no gross abnormalities. CHEST: Clear to auscultation with no wheezing or rhonchi appreciated. HEART: Regular rate and rhythm. ABDOMEN: Soft, obese. Bowel sounds are positive. No organomegaly. No guarding or rigidity. EXTREMITIES: No pedal edema. SKIN: No rashes, no jaundice. NEUROLOGIC: Alert and oriented x3. No focal deficits. - Labs CBC & Chem 7: 09/10/18 05:38 09/10/18 05:38 Labs: Abnormal Lab Results - Last 24 Hours (Table) 09/09/18 09/09/18 09/10/18 Range/Units 16:19 16:19 05:38 WBC 13.4 H (3.8-10.6) k/uL RBC 3.70 L (4.30-5.90) m/uL Hgb 12.0 L (13.0-17.5) gm/dL Hct 37.8 L (39.0-53.0) % MCV 102.2 H (80.0-100.0) fL RDW 16.5 H (11.5-15.5) % Neutrophils # 11.5 H (1.3-7.7) k/uL ESR 97 H (0-15) mm/hr Sodium 134 L (137-145) mmol/L Potassium (3.5-5.1) mmol/L Carbon Dioxide (22-30) mmol/L BUN 6 L (9-20) mg/dL Creatinine 0.63 L (0.66-1.25) mg/dL Glucose (74-99) mg/dL Calcium 7.7 L (8.4-10.2) mg/dL C-Reactive Protein 250.3 H (<10.0) mg/L 09/10/18 Range/Units 05:38 WBC (3.8-10.6) k/uL RBC (4.30-5.90) m/uL Hgb (13.0-17.5) gm/dL Hct (39.0-53.0) % MCV (80.0-100.0) fL RDW (11.5-15.5) % Neutrophils # (1.3-7.7) k/uL ESR (0-15) mm/hr Sodium 133 L (137-145) mmol/L Potassium 3.2 L (3.5-5.1) mmol/L Carbon Dioxide 20 L (22-30) mmol/L BUN 6 L (9-20) mg/dL Creatinine 0.63 L (0.66-1.25) mg/dL Glucose 63 L (74-99) mg/dL Calcium 7.6 L (8.4-10.2) mg/dL C-Reactive Protein (<10.0) mg/L Microbiology - Last 24 Hours (Table) 09/07/18 10:45 Blood Culture - Preliminary Blood No Growth after 48 hours Assessment and Plan Plan: Assessment and plan #1 symptoms of midsternal chest tightness with associated pressure and heaviness , diaphoresis. EKG shows normal sinus rhythm with nonspecific ST-T wave changes. Troponins 0.03, 0.13, 0.20. Non-Q-wave NE #2 abdominal discomfort with associated vomiting and diarrhea. Acute colitis. #3 2 pack per day smoker #4 COPD #5 family history of premature coronary artery disease in his father who had a myocardial infarction at a young age #6 elevated white blood cell count with no evidence of fever, exact etiology unknown Plan From cardiology's perspective, we will replace the patient's potassium. Continue the rest of his medications. We'll make him a follow-up appointment post discharge with Dr. JOSUE Johnson in one week to 10 days. We will follow him along with you now on an as-needed basis only, please don't hesitate to call us with any questions. DNP note has been reviewed, I agree with a documented findings and plan of care. Patient was seen and examined.
[2018-09-10] MEDS: POTASSIUM CHLORIDE ER 20 MEQ TAB.ER PO SCH (11:16)
[2018-09-10 11:36] LABS: Iron Saturation 25.6 (15.00-50.00)
--- NOTE | 2018-09-10 12:51 | MR ---
EXAMINATION TYPE: MR lumbar spine wo con DATE OF EXAM: 09/10/2018 COMPARISON: None HISTORY: Back pain aortic occlusion CONTRAST: 0 mL intravenous Gadavist. TECHNIQUE: Multiplanar, multisequence images of the lumbar spine were acquired. FINDINGS: Cord terminates at the L1 level. L5-S1: No significant disc bulge or disc herniation. Disc space narrowing is present through this lev el. No spinal canal stenosis. No foraminal stenosis. . L4-L5: Broad-based disc bulge has mild anterior thecal sac compression. There is increased signal in a linear fashion through the posterior left portion of the disc space which can be compatible with an annular tear. This may has some mild narrowing of the bilateral foramen. Mild facet hypertrophy is p resent. No spinal canal stenosis. L3-L4: Mild disc bulge has anterior thecal sac contact. No spinal canal stenosis. No foraminal sten osis. . L2-L3: No significant disc bulge or disc herniation. No spinal canal stenosis. No foraminal stenosi s. L1-L2: No significant disc bulge or disc herniation. No spinal canal stenosis. No foraminal stenosi s. T12-L1: No significant disc bulge or disc herniation. No spinal canal stenosis. No foraminal stenos is. IMPRESSION: 1. Annular tear without significant disc bulging L4-5 paracentral left lateral region. 2. Minimal disc bulging L3-4 questionable clinical significance.
--- NOTE | 2018-09-10 15:10 | CONS ---
DATE OF CONSULTATION: 09/10/2018 This is a 58-year-old gentleman I have been following for consultation for aortic occlusive disease. Patient has history of chronic lymphocytic leukemia and he was treated at [facility] with the chemotherapy. Patient also has history of severe COPD with history of smoking. The patient has been admitted also with a history of some GI symptoms and also noted to have some chest discomfort and found to have nonspecific ST and T-wave changes from protozoologist on consult. PHYSICAL EXAMINATION: On examination, brachial radial pulses are present. Femorals are not palpable. There are present by the Doppler. Patient has a tenderness in the right lower quadrant, but improving. PTT not palpable. There is no ischemic joint changes noted to both feet. Patient had a CT of the abdomen which found to have infrarenal aortoiliac occlusive disease with some collaterals filling the femorals. Patient came with similar symptoms 3 months ago to [facility] and patient was sent to [facility] and was told that it is a chronic occlusion and patient did not go through any surgical intervention at that time. Seen in the room today, he is lying comfortably in bed. His abdomen is soft. Foot is nontender. No ischemic changes noted. I had a long discussion with the family. Patient needs aortobifem and patient has a history of COPD, coronary artery disease, lymphatic leukemia, abdominal pain which is improving. Patient is going home today and will follow in the office and arrange for surgery and risks and complications have been discussed with the and the other family members. At this point, they are not sure that they will go for this major surgical intervention. Will follow in my office next week. MMODL / IJN: [id number] / [email or web address]
[2018-09-10 15:34] VITALS: BP 78/61; PULSE 88; TEMP 97.4
[2018-09-10] MEDS ORDERED: PANTOPRAZOLE 40 MG TABLET PO SCH (17:30)
--- NOTE | 2018-09-10 18:16 | P.PN ---
Subjective Progress Note Date: 09/10/18 Principal diagnosis: Enteritis, blood per rectum Patient reports he is feeling much better. Abdominal pain improved. 2 bowel movements this morning. No blood per rectum. Objective - Vital Signs Vital signs: Vital Signs Temp 97.4 F L 09/10/18 15:33 Pulse 88 09/10/18 15:33 Resp 18 09/10/18 15:33 BP 78/61 09/10/18 15:33 Pulse Ox 99 09/10/18 15:33 Intake & Output 09/09/18 09/10/18 09/10/18 18:59 06:59 18:59 Intake Total 940 Output Total 625 675 Balance 315 -675 Weight 69.6 kg 69.6 kg Intake: Intake, IV Titration 820 Amount Sodium Chloride 0.9% 1, 720 000 ml @ 60 mls/hr IV . [id number] LASHAUN Rx#:[id number] cefTRIAXone 2,000 mg In 100 Sodium Chloride 0.9% 100 ml @ 100 mls/hr IVPB Q24HR LASHAUN Rx#:[id number] Oral 120 Output: Urine 625 675 Other: Voiding Method Toilet Toilet Urinal Urinal # Voids 1 1 # Bowel Movements 1 1 - Exam On physical examination, patient appears comfortable in no apparent distress. HEAD: Normocephalic, atraumatic. EYES: No scleral icterus. No conjunctival injection. MOUTH: No lesions, tongue midline. NECK: Trachea midline, no gross abnormalities. CHEST: Clear to auscultation with no wheezing or rhonchi appreciated. HEART: Regular rate and rhythm. ABDOMEN: Soft, obese. Bowel sounds are positive. No organomegaly. No guarding or rigidity. EXTREMITIES: No pedal edema. SKIN: No rashes, no jaundice. NEUROLOGIC: Alert and oriented x3. No focal deficits. - Labs CBC & Chem 7: 09/10/18 05:38 09/10/18 05:38 Labs: Abnormal Lab Results - Last 24 Hours (Table) 09/09/18 09/10/18 09/10/18 Range/Units 05:54 05:38 05:38 WBC 13.4 H (3.8-10.6) k/uL RBC 3.70 L (4.30-5.90) m/uL Hgb 12.0 L (13.0-17.5) gm/dL Hct 37.8 L (39.0-53.0) % MCV 102.2 H (80.0-100.0) fL RDW 16.5 H (11.5-15.5) % Neutrophils # 11.5 H (1.3-7.7) k/uL Sodium 133 L (137-145) mmol/L Potassium 3.2 L (3.5-5.1) mmol/L Carbon Dioxide 20 L (22-30) mmol/L BUN 6 L (9-20) mg/dL Creatinine 0.63 L (0.66-1.25) mg/dL Glucose 63 L (74-99) mg/dL Calcium 7.6 L (8.4-10.2) mg/dL Iron 43 L (65-175) ug/dL TIBC 168 L (228-460) ug/dL Ferritin 1112.3 H (22.0-322.0) ng/mL Microbiology - Last 24 Hours (Table) 09/08/18 11:55 Stool Culture - Preliminary Stool 09/07/18 10:45 Blood Culture - Preliminary Blood No Growth after 72 hours Assessment and Plan (1) Enteritis Narrative/Plan: Patient was CT findings suggestive of enteritis in the setting of loose stool and 3 bowel movements containing blood. Likely represents a infectious etiology , cannot rule out ischemia, or other process. Status: Acute Code(s): K52.9 - NONINFECTIVE GASTROENTERITIS AND COLITIS, UNSPECIFIED SNOMED Code(s): 32498929 (2) Blood per rectum Narrative/Plan: In the setting of loose stool this may represent hemorrhoidal bleeding, differential also includes infectious or ischemic etiology. Status: Acute Code(s): K62.5 - HEMORRHAGE OF ANUS AND RECTUM SNOMED Code(s) : 41823803 Plan: Supportive care Continue antibiotics, completed to 14 days total treatment Continue to monitor hemoglobin and transfuse as needed Diet as tolerated Testing for C. diff was negative No plan for endoscopic evaluation at this time, if patient's symptoms worsen or he has a significant fall in hemoglobin will consider further workup at that time Bentyl as needed for abdominal pain Thank you for allowing us to participate in the care of this patient, the gastroenterology service will sign off at this time, okay to discharge patient from a GI standpoint, please feel free to call us back with any questions or concerns
--- NOTE | 2018-09-11 08:14 | DS ---
DISCHARGE SUMMARY DATE OF SERVICE: 09/10/2018 FINAL DIAGNOSES: 1. Acute non ST segment elevation myocardial infarction present on admission. 2. Abdominal pain right lower quadrant, possible right side enteritis. 3. Aortoiliac vascular occlusion with peripheral vascular disease and diffuse leg pain. 4. Possible acute ischemic colitis secondary to acute lower gastrointestinal bleeding. 5. Acute lymphocytic leukemia in remission. 6. Chronic chronic obstructive pulmonary disease. 7. Neutrophilic leukocytosis. 8. Increased WBC. 9. Increased MCV. 10.Hyponatremia. 11.Hypoalbuminemia. 12.Back pain with severe degenerative joint disease and disc bulging. DISCHARGE DISPOSITION: The patient is being discharged in stable condition with guarded prognosis. Total time taken: 35 minutes. This 58-year-old gentleman with a past medical history of multiple medical problems followed up with the [facility] in the outpatient setting was admitted with significant problems including features of acute non ST segment elevation myocardial infarction. Patient also had abdominal and back pain also. The patient had significant aortoiliac vascular occlusion. Patient also had features of acute non ST segment elevation myocardial infarction. Cardiology recommended outpatient followup and further cardiac workup. The patient was evaluated in detail with Dr. Chu, vascular surgery who recommended aortoiliac bypass grafting at this time because of significant vascular disease. The patient was treated symptomatically. Patient also had disc bulging and MRI. Orthopedics surgery evaluated the patient and recommend outpatient setting. Gastroenterology also saw the patient. Overall patient's prognosis is significantly limited because of multiple complex medical issues and I recommend follow up with the patient with Cardiology initially and after cardiac workup, stabilization, Dr. Chu will evaluate the patient for possible surgery at this time. We will also continue to recommend to follow up with Gastroenterology in the outpatient setting and cardiology as well. Once again, overall prognosis guarded. Patient will be discharged in stable condition. Guarded prognosis. On exam, are stable. Cardiovascular: S1, S2. Abdomen soft. Nervous system: No focal deficits. DISCHARGE ADVICE AND MEDICATIONS: 1. Diet is cardiac diet. 2. Activity limited until followup. 3. Follow up with [facility], Dr. Romo as advised. 4. Follow up with drop board man as advised. 5. Follow up with vascular surgery Dr. Chu as advised. 6. Follow up with Dr. Boston and Dr. Pabon as advised. 7. Follow up with Gastroenterology as advised. 8. Please refer to the discharge note for further details. MEDICATIONS: Home medications are: 1. Megace 400 mg p.o. b.i.d. 2. Aspirin 81 mg. 3. Lipitor 20 mg q.h.s. 4. Symbicort 160/4.5 two puffs b.i.d. 5. Ceftin 500 mg p.o. b.i.d. for 5 days. 6. Benadryl 10 mg p.r.n. 7. Combivent 1 to 2 puffs q.i.d. 8. Lopressor 12.5 mg p.o. b.i.d. 9. Flagyl 500 mg p.o. t.i.d. 10.Habitrol 21 daily. 11.Nitrostat 0.4 mg sublingual p.r.n.. Once again, the patient is being discharged in stable condition with guarded prognosis. MMODL / IJN: [id number] /
[2018-09-11] MEDS ORDERED: ASPIRIN 81 MG PO SCH (09:00)
== END 2018-09-10 17:47 | disposition home health service (06) | DRG 280 ==
LOC: EC 13:38 → 1SOBS 18:01 → 3SCARD 22:21 → OBSVTOIN 09-07 10:03
PROVIDERS: ADMIT Internal Medicine; ATTEND Internal Medicine
DX: I21.4 Non-ST elevation (NSTEMI) myocardial infarction (principal); K55.039 Acute (reversible) ischemia of large intestine, extent unspecified; C91.01 Acute lymphoblastic leukemia, in remission; J44.0 Chronic obstructive pulmonary disease with (acute) lower respiratory infection; E87.1 Hypo-osmolality and hyponatremia; I74.09 Other arterial embolism and thrombosis of abdominal aorta; K56.7 Ileus, unspecified; E88.09 Other disorders of plasma-protein metabolism, not elsewhere classified; I70.223 Atherosclerosis of native arteries of extremities with rest pain, bilateral legs; I25.10 Atherosclerotic heart disease of native coronary artery without angina pectoris; E78.5 Hyperlipidemia, unspecified; I10 Essential (primary) hypertension; M54.40 Lumbago with sciatica, unspecified side; D53.9 Nutritional anemia, unspecified; F17.210 Nicotine dependence, cigarettes, uncomplicated; Z71.6 Tobacco abuse counseling; Z79.818 Long term (current) use of other agents affecting estrogen receptors and estrogen levels; Z86.711 Personal history of pulmonary embolism; Z96.642 Presence of left artificial hip joint; Z92.21 Personal history of antineoplastic chemotherapy; Z87.01 Personal history of pneumonia (recurrent); Z91.048 Other nonmedicinal substance allergy status; Z80.1 Family history of malignant neoplasm of trachea, bronchus and lung; Z82.49 Family history of ischemic heart disease and other diseases of the circulatory system
CPT/HCPCS: 36415; 71046; 72100; 72148; 74177; 76705; 80048; 80053; 80061; 81001; 82150; 82272; 82550; 82553; 82607; 82728; 83540; 83550; 83605; 83690; 83735; 83921; 84484; 85025; 85610; 85652; 85730; 86140; 87040; 87045; 87046; 87177; 87207; 87209; 87324; 87502; 93005; 93306; 94760; 96360; 96361; 99285

== ENCOUNTER 2018-09-12 07:58 | Inpatient (IN) | payer OTHER ==
[2018-09-12] MEDS ORDERED: SODIUM CHLORIDE 0.9% 500 ML 500 ML IV STA (08:09)
[2018-09-12 08:23] VITALS: TEMP 98.9
--- NOTE | 2018-09-12 08:55 | ED ---
General Adult HPI - General Chief complaint: Chest Pain Stated complaint: CHEST PAIN Source: patient, EMS Mode of arrival: EMS Limitations: physical limitation - Related Data Home Medications Medication Instructions Recorded Confirmed Megestrol [Megace] 400 mg PO BID 09/06/18 09/12/18 Previous Rx's Medication Instructions Recorded Aspirin 81 mg PO DAILY #30 chew 09/10/18 Atorvastatin Calcium [Lipitor] 20 mg PO HS #30 tab 09/10/18 Cefuroxime Axetil [Ceftin] 500 mg PO BID #10 tab 09/10/18 Dicyclomine [Bentyl] 10 mg PO TID PRN #21 cap 09/10/18 Metoprolol Tartrate [Lopressor] 12.5 mg PO BID #60 tab 09/10/18 Nicotine 21Mg/24Hr Patch [Habitrol] 1 patch TRANSDERM DAILY #21 patch 09/10/18 Nitroglycerin Sl Tabs [Nitrostat] 0.4 mg SUBLINGUAL Q5M PRN #100 tab 09/10/18 metroNIDAZOLE [Flagyl] 500 mg PO TID #15 tab 09/10/18 Allergies Allergy/AdvReac Type Severity Reaction Status Date / Time Paper Tape AdvReac Unknown Red , Uncoded 09/06/18 13:52 Irritated Skin Review of Systems ROS Statement: Those systems with pertinent positive or pertinent negative responses have been documented in the HPI. ROS Other: All systems not noted in ROS Statement are negative. Past Medical History Past Medical History: Cancer, COPD, Pneumonia, Pulmonary Embolus (PE) Additional Past Medical History / Comment(s): HX OF LEUKEMIA (RECIEVED CHEMO- LAST 1983) hx ulcers around the time he was receiving chemo , HAND TREMORS, HX OF PEX2 LEFT LUNG when receivng chemo, BACK AND LEFT HIP PAIN., hx of anemia has had blood transfusions and iron infusions, sciatic nerve pain History of Any Multi-Drug Resistant Organisms: None Reported Past Surgical History: Hernia Repair, Joint Replacement, Orthopedic Surgery Additional Past Surgical History / Comment(s): ANNIKA HIP SURGERY, LEFT TOTAL HIP, PORT FOR CHEMO INSERTED AND REMOVED. , NOSE SURGERY.egd/colonoscopy/polypectomy Past Anesthesia/Blood Transfusion Reactions: No Reported Reaction Additional Past Anesthesia/Blood Transfusion Reaction / Comment(s): blood transfusion-no reaction Past Psychological History: No Psychological Hx Reported Smoking Status: Current every day smoker - Past Family History Father Family Medical History: Cancer Additional Family Medical History / Comment(s): LUNG CA Mother Family Medical History: Cancer Additional Family Medical History / Comment(s): LUNG CANCER General Exam Limitations: physical limitation Course Vital Signs 09/12/18 09/12/18 09/12/18 08:14 08:30 09:00 Temperature 98.9 F Pulse Rate 104 H 131 H 111 H Respiratory 18 18 17 Rate Blood Pressure 121/80 71/49 127/86 O2 Sat by Pulse 98 100 Oximetry 09/12/18 09:30 Temperature Pulse Rate 103 H Respiratory 18 Rate Blood Pressure 65/49 O2 Sat by Pulse 100 Oximetry Procedures - Central Line Placement Left IJ Consent Obtained: verbal consent Time Out Performed: Yes Patient Placed on Monitor/Pulse Ox: Yes MD Prep: mask, gloves, other Central Line Prep: Povidone-Iodine 1%, Chlorhexidine scrub, sterile drapes applied Local Anesthesia Used: Lidocaine 1%, with Epi Amount of Anesthesia Used (mls): 3 Ultrasound Used for Placement: Yes Central Line Lumen Inserted: triple Bloods Obtained for Lab: No Central Line Position: good blood return, all ports aspirated, flushed, capped, sutured in place with nylon Dressing Applied: Tegaderm Post Procedure X-Ray: tip of catheter in good position Patient Tolerated Procedure: well Complications: none Medical Decision Making - Medical Decision Making Dictation was produced using [employer] dictation software. please excuse any grammatical, word or spelling errors. Chief Complaint: 58-year-old male past medical history of leukemia percents with total body pain, nausea and vomiting. History of Present Illness: 48-year-old male past medical history of COPD, descending aortic obstruction, leukemia presents with total body pain and acute nausea and vomiting. Patient states that his whole body hurts. He reports that its worse from the epigastric area down to his toes bilaterally. Patient is recently admitted to the hospital for NSTEMI was heparinized. Chart review shows that he was admitted for acute lower GI bleed. Discharge summary was reviewed. Patient had final diagnosis of acute NSTEMI, possible ischemic colitis, chronic aortoiliac vascular occlusion. Patient was value by cardiology , vascular surgery and gastroenterology. He is discharged. Vascular surgery the patient is a candidate for bypass grafting. The ROS documented in this emergency department record has been reviewed and confirmed by me. Those systems with pertinent positive or negative responses have been documented in the HPI. All other systems are other negative and/or noncontributory. PHYSICAL EXAM: General Impression: Alert and oriented x3, not in acute distress HEENT: Normocephalic atraumatic, extra-ocular movements intact, pupils equal and reactive to light bilaterally, mucous membranes moist. Cardiovascular: Heart regular rate and rhythm, S1&S2 audible, no murmurs, rubs or gallops Chest: Lungs clear to auscultation bilaterally, no rhonchi, no wheeze, no rales Abdomen: Bowel sounds present, abdomen soft, non-tender, non-distended, no organomegaly Musculoskeletal: no peripheral edema Motor: Power 5/5 bilaterall , no focal deficits noted Neurological: CN II-XII grossly intact, no focal motor or sensory deficits noted Skin: Mottling of the lower legs extending from the lower abdomen down to the toes. Mottling worse on the left than the right. Pallor to the right lower extremity. No palpable Psych: Normal affect and mood ED course: 58-year-old male with multiple comorbidities presents with nausea, vomiting and epigastric pain radiated down to his bilateral toes vital signs shows heart rate 104, rest of vital signs within acceptable limits.EKG interpretation: Ventricular rate 101, sinus tachycardia, MT interval 160, care 68, QTc 510. No MT prolongation, no QTC prolongation, no ST or T-wave changes noted. Overall, this EKG is unremarkable. Clinical presentation is suspicious for acute abdominal ischemia and ischemia to the bilateral lower extremities. There is high degree of suspicion of aortic occlusion.Laboratory evaluation obtained leukocytosis of 25.4. Hemoglobin 11.9. Coag panel shows 1.6. There is a gap acidosis with a carbon dioxide of 11, gap 23. Lactic acidosis of 7.5. Troponin level 0.065. Patient started on ceftriaxone and Flagyl. Patient was started on heparin. Discussed patient case with Dr. Mejía who recommended transfer. Discussed patient case with vascular surgeon Dr. Jimenez. CT thoracic abdominal aorta angiogram with bilateral runoffs were obtained. Patient has complete occlusion of infrarenal abdominal aorta. Patient also has bilateral pulmonary emboli. This pain seemed the renal arteries however left sided renal infarcts. Is also ground glass opacity left lower lobe suspicious for pneumonia. Patient imaging and patient was evaluated by vascular surgery who will take patient for axillary bilateral femoral procedure. Left IJ was placed under ultrasound guidance. Post procedure films were obtained showing adequate placement. - Lab Data Result diagrams: 09/12/18 08:54 09/12/18 08:54 Lab Results 09/12/18 09/12/18 09/12/18 Range/Units 08:54 08:54 08:54 WBC 25.4 H (3.8-10.6) k/uL RBC 3.67 L (4.30-5.90) m/uL Hgb 11.9 L (13.0-17.5) gm/dL Hct 37.4 L (39.0-53.0) % MCV 101.9 H (80.0-100.0) fL MCH 32.4 (25.0-35.0) pg MCHC 31.8 (31.0-37.0) g/dL RDW 17.1 H (11.5-15.5) % Plt Count 481 H (150-450) k/uL Neutrophils % 91 % Lymphocytes % 5 % Monocytes % 2 % Eosinophils % 0 % Basophils % 0 % Neutrophils # 23.1 H (1.3-7.7) k/uL Lymphocytes # 1.3 (1.0-4.8) k/uL Monocytes # 0.6 (0-1.0) k/uL Eosinophils # 0.1 (0-0.7) k/uL Basophils # 0.1 (0-0.2) k/uL Anisocytosis Slight Macrocytosis Slight PT (9.0-12.0) sec INR (<1.2) Sodium 136 L (137-145) mmol/L Potassium 3.4 L (3.5-5.1) mmol/L Chloride 102 (98-107) mmol/L Carbon Dioxide 11 L (22-30) mmol/L Anion Gap 23 mmol/L BUN 4 L (9-20) mg/dL Creatinine 0.59 L (0.66-1.25) mg/dL Est GFR (CKD-EPI)AfAm >90 (>60 ml/min/1.73 sqM) Est GFR (CKD-EPI)NonAf >90 (>60 ml/min/1.73 sqM) Glucose 144 H (74-99) mg/dL Plasma Lactic Acid Paul (0.7-2.0) mmol/L Calcium 8.8 (8.4-10.2) mg/dL Magnesium 1.8 (1.6-2.3) mg/dL Total Bilirubin 0.5 (0.2-1.3) mg/dL AST 40 (17-59) U/L ALT 16 L (21-72) U/L Alkaline Phosphatase 143 H (38-126) U/L Total Creatine Kinase 624 H (55-170) U/L CK-MB (CK-2) 6.3 H (0.0-2.4) ng/mL CK-MB (CK-2) Rel Index 1.0 Troponin I 0.065 H* (0.000-0.034) ng/mL Total Protein 5.4 L (6.3-8.2) g/dL Albumin 2.7 L (3.5-5.0) g/dL Amylase 74 (30-110) U/L Lipase 31 (23-300) U/L Urine Color Urine Appearance (Clear) Urine pH (5.0-8.0) Ur Specific [place] (1.001-1.035) Urine Protein (Negative) Urine Glucose (UA) (Negative) Urine Ketones (Negative) Urine Blood (Negative) Urine Nitrite (Negative) Urine Bilirubin (Negative) Urine Urobilinogen (<2.0) mg/dL Ur Leukocyte Esterase (Negative) Urine RBC (0-5) /hpf Urine WBC (0-5) /hpf Urine Mucus (None) /hpf 09/12/18 09/12/18 09/12/18 Range/Units 08:54 08:54 10:25 WBC (3.8-10.6) k/uL RBC (4.30-5.90) m/uL Hgb (13.0-17.5) gm/dL Hct (39.0-53.0) % MCV (80.0-100.0) fL MCH (25.0-35.0) pg MCHC (31.0-37.0) g/dL RDW (11.5-15.5) % Plt Count (150-450) k/uL Neutrophils % % Lymphocytes % % Monocytes % % Eosinophils % % Basophils % % Neutrophils # (1.3-7.7) k/uL Lymphocytes # (1.0-4.8) k/uL Monocytes # (0-1.0) k/uL Eosinophils # (0-0.7) k/uL Basophils # (0-0.2) k/uL Anisocytosis Macrocytosis PT 15.9 H (9.0-12.0) sec INR 1.6 H (<1.2) Sodium (137-145) mmol/L Potassium (3.5-5.1) mmol/L Chloride (98-107) mmol/L Carbon Dioxide (22-30) mmol/L Anion Gap mmol/L BUN (9-20) mg/dL Creatinine (0.66-1.25) mg/dL Est GFR (CKD-EPI)AfAm (>60 ml/min/1.73 sqM) Est GFR (CKD-EPI)NonAf (>60 ml/min/1.73 sqM) Glucose (74-99) mg/dL Plasma Lactic Acid Paul 7.5 H* (0.7-2.0) mmol/L Calcium (8.4-10.2) mg/dL Magnesium (1.6-2.3) mg/dL Total Bilirubin (0.2-1.3) mg/dL AST (17-59) U/L ALT (21-72) U/L Alkaline Phosphatase (38-126) U/L Total Creatine Kinase (55-170) U/L CK-MB (CK-2) (0.0-2.4) ng/mL CK-MB (CK-2) Rel Index Troponin I (0.000-0.034) ng/mL Total Protein (6.3-8.2) g/dL Albumin (3.5-5.0) g/dL Amylase (30-110) U/L Lipase (23-300) U/L Urine Color Yellow Urine Appearance Clear (Clear) Urine pH 5.5 (5.0-8.0) Ur Specific [place] 1.014 (1.001-1.035) Urine Protein Trace H (Negative) Urine Glucose (UA) Negative (Negative) Urine Ketones 4+ H (Negative) Urine Blood Moderate H (Negative) Urine Nitrite Negative (Negative) Urine Bilirubin Negative (Negative) Urine Urobilinogen <2.0 (<2.0) mg/dL Ur Leukocyte Esterase Negative (Negative) Urine RBC <1 (0-5) /hpf Urine WBC 2 (0-5) /hpf Urine Mucus Rare H (None) /hpf Critical Care Time Critical Care Time: Yes Total Critical Care Time: 31 Disposition Clinical Impression: Aortic occlusion Disposition: ADMITTED IP TO THIS HOSP Condition: Critical Referrals: [facility]inic [Primary Care Provider] - 1-2 days Decision Time: 12:06
[2018-09-12] MEDS ORDERED: MORPHINE SULFATE 4 MG/ML SYRINGE IVP PRN (09:03)
--- NOTE | 2018-09-12 09:25 | XR ---
EXAMINATION TYPE: XR chest 1V portable DATE OF EXAM: 09/12/2018 COMPARISON: 09/06/2018 HISTORY: Shortness of breath TECHNIQUE: Single frontal view of the chest is obtained. FINDINGS: There is no focal air space opacity, pleural effusion, or pneumothorax seen. There is even tration of the right hemidiaphragm as seen on the prior. Again prominent lung volumes may relate to u nderlying COPD. The cardiac silhouette size is within normal limits. The osseous structures are int act. IMPRESSION: No acute cardiopulmonary process, unchanged from the prior.
--- NOTE | 2018-09-12 09:27 | XR ---
EXAMINATION TYPE: XR KUB DATE OF EXAM: 09/12/2018 9:19 AM CLINICAL HISTORY: Abdominal pain TECHNIQUE: Single supine KUB image of the abdomen is obtained. COMPARISON: None. FINDINGS: Scattered gas is seen in nondilated small bowel loops. Gas and fecal material is seen in no ndilated colon. There is no abnormal calcification appreciated. Extensive atherosclerosis is noted of the aortoiliac bifurcation and its branches. The lung bases are clear and the osseous structures are intact. Bilateral femoral arthroplasties are partially visualized. IMPRESSION: Nonobstructive bowel gas pattern.
[2018-09-12 09:30] LABS: Anisocytosis Slight; Basophils # (A) 0.1 k/uL (0-0.2); Basophils % (A) 0 %; Eosinophils # (A) 0.1 k/uL (0-0.7); Eosinophils % (A) 0 %; HCT 37.4 % (39.0-53.0); HGB 11.9 gm/dL (13.0-17.5); Lymphocytes # (A) 1.3 k/uL (1.0-4.8); Lymphocytes % (A) 5 %; MCH 32.4 pg (25.0-35.0); MCHC 31.8 g/dL (31.0-37.0); MCV 101.9 fL (80.0-100.0); Macrocytosis Slight; Mean Platelet Volume 7.4; Monocytes # (A) 0.6 k/uL (0-1.0); Monocytes % (A) 2 %; Neutrophils # (A) 23.1 k/uL (1.3-7.7); Neutrophils % (A) 91 %; Platelet Count 481 k/uL (150-450); RBC 3.67 m/uL (4.30-5.90); RDW 17.1 % (11.5-15.5); WBC 25.4 k/uL (3.8-10.6)
[2018-09-12 09:33] LABS: INR 1.6 (<1.2); Prothrombin Time 15.9 sec (9.0-12.0)
[2018-09-12 09:36] LABS: ALT 16 U/L (21-72); AST 40 U/L (17-59); Albumin 2.7 g/dL (3.5-5.0); Alkaline Phosphatase 143 U/L (38-126); Amylase 74 U/L (30-110); Anion Gap 23 mmol/L; Blood Urea Nitrogen 4 mg/dL (9-20); Calcium 8.8 mg/dL (8.4-10.2); Carbon Dioxide 11 mmol/L (22-30); Chloride 102 mmol/L (98-107); Glucose 144 mg/dL (74-99); Lipase 31 U/L (23-300); Magnesium 1.8 mg/dL (1.6-2.3); Potassium 3.4 mmol/L (3.5-5.1); Sodium 136 mmol/L (137-145); Total Bilirubin 0.5 mg/dL (0.2-1.3); Total Protein 5.4 g/dL (6.3-8.2)
[2018-09-12] MEDS ORDERED: metroNIDAZOLE-NS PMX 500 MG in SALINE 1 100ML.BAG IVPB STA (09:36)
[2018-09-12] MEDS ORDERED: fentaNYL (PF) 50 MCG/ML 2 ML AMP IVP ONE (09:51)
[2018-09-12] MEDS ORDERED: HEPARIN SODIUM,PORCINE 5,000 UNIT/ML 1 ML VIAL IV ONE (10:02)
[2018-09-12] MEDS ORDERED: HEPARIN SODIUM,PORCINE 5,000 UNIT/ML 1 ML VIAL IV PRN (10:02)
[2018-09-12 10:11] LABS: Creatine Kinase MB 6.3 ng/mL (0.0-2.4)
[2018-09-12 10:15] LABS: Troponin I 0.065 ng/mL (0.000-0.034)
[2018-09-12] MEDS ORDERED: HEPARIN SOD,PORK IN 0.45% NACL 25,000 UNIT in 0.45% NACL 1 250ML.BAG IV SCH (10:15)
[2018-09-12 10:47] LABS: Appearance,Urine Clear (Clear); Bilirubin,Urine Negative (Negative); Blood,Urine Moderate (Negative); Color,Urine Yellow; Glucose,Urine (UA) Negative (Negative); Ketones,Urine 4+ (Negative); Leukocyte Esterase,Urine Negative (Negative); Mucus,Urine Rare /hpf; Nitrite,Urine Negative (Negative); PH, Urine 5.5 (5.0-8.0); Protein,Urine Trace (Negative); RBC,Urine <1 /hpf (0-5); Specific Gravity,Urine 1.014 (1.001-1.035); Urobilinogen,Urine <2.0 mg/dL (<2.0)
--- NOTE | 2018-09-12 11:50 | XR ---
EXAMINATION TYPE: XR chest 1V DATE OF EXAM: 09/12/2018 COMPARISON: 09/12/2018 HISTORY: 58-year-old male with pain TECHNIQUE: Single frontal view of the chest is obtained. FINDINGS: Left IJ CVC tip at the lower SVC level. No appreciable pneumothorax. Heart normal size. Mild intersti tial prominence. No consolidation or pleural effusion. IMPRESSION: 1. Left IJ CVC tip in the lower SVC. No appreciable pneumothorax. 2. COPD with mild emphysema. Interstitium appears more accentuated and could represent superimposed a cute bronchitis.
[2018-09-12] MEDS ORDERED: ACETAMINOPHEN SUPPOSITORY 650 MG SUPP RECTAL PRN (11:57)
[2018-09-12] MEDS ORDERED: NALOXONE 0.4 MG/ML 1 ML VIAL IV PRN (11:57)
[2018-09-12] MEDS ORDERED: SODIUM CHLORIDE 0.9% 1,000 ML IV SCH (12:00)
--- NOTE | 2018-09-12 12:04 | CT ---
EXAMINATION TYPE: CT angio tho/abd W Run Off DATE OF EXAM: 09/12/2018 11:36 AM COMPARISON: CT abdomen pelvis dated 09/07/2018 HISTORY: Aorta is blocked. Abdominal pain. Lower extremity vasculopathy. CT DLP: 2736.6 mGycm Automated exposure control for dose reduction was used. TECHNIQUE: Performed without and with IV Contrast, patient injected with 125 mL of Isovue 370. 3-D reformats of the vasculature were obtained at a separate workstation for review. FINDINGS: VASCULATURE: There is occlusion of the left proximal subclavian artery for short segment from the ost ia measuring 1.5 cm in length with reconstitution distally. There is total occlusion of the left comm on carotid artery and its visualized portion. Right common carotid artery appears patent. The left ve rtebral artery and right vertebral artery appear patent and the visualized portions, possibly from a subclavian steal. There are penetrating atheromatous ulcers within the descending thoracic aorta that are multifocal me asuring up to 7 mm in thickness. No thoracic aortic dissection or aneurysm. Motion artifact is seen o f the ascending thoracic aorta slightly limiting evaluation for dissection. The celiac access and SMA demonstrate occlusion. Diminutive flow is seen within some of the distal br anches of the superior mesenteric artery. The inferior mesenteric artery appears diminutive but paten t. There is no infrarenal total abdominal aortic occlusion just below the takeoff of the inferior mes enteric artery. Total occlusion extends into the common iliac arteries, external iliac arteries and i nternal iliac arteries with extensive calcifications throughout. There are diminutive superficial femoral and deep femoral arteries although patency is maintained fro m deep perforating small caliber collaterals. There is occlusion of the right popliteal artery and di minutive caliber of the left popliteal artery. No significant perfusion is seen to the branch vessels of either lower extremity. OTHER: There is moderate centrilobular emphysematous change throughout. Groundglass opacity within th e anterior left upper lobe is seen on image 27 that could relate to pneumonitis. Nodular probable ate lectasis is seen at both lung bases with trace pleural effusions. Possible groundglass 3 mm pulmonary nodule seen in the right lower lobe on image 34. No adenopathy within the mediastinum. Arterial phase of the viscera limit evaluation. There is collap se of the distal esophagus, from nondistention. Small splenule is noted. The liver, gallbladder, adre nal glands, and pancreas are unremarkable. There are multiple wedge-shaped left renal infarcts of the mid and inferior pole and to lesser degree of the superior pole. Right renal perfusion is maintained . Too small to accurately characterize right renal lesions are present. There is no evidence of pneumatosis intestinalis, pneumatosis coli, or portal venous gas. No dilated bowel or mesenteric edema. No greater than 1 cm short axis lymph node in the abdomen or pelvis. Urina ry bladder is decompressed due to placement of a Galeano catheter. Low pelvis is obscured by spray artifact from bilateral femoral arthroplasties. Mild degenerative toya nges of the spine are seen with osseous demineralization of the pelvis. Tricompartmental moderate art hropathy is seen of the knees. There are bilateral pulmonary emboli demonstrating is filling defects to each segmental and subsegmen armani branch to the bilateral lungs. No abnormal right ventricular to left ventricular ratio is seen. N o enlargement of the main pulmonary artery is noted. IMPRESSION: 1. Complete occlusion of the infrarenal abdominal aorta due to extensive calcific and noncalcific ath eromatous plaquing. Diminutive inferior mesenteric artery appears patent with few branch vessels of t he superior mesenteric artery demonstrating patency from collaterals as the superior mesenteric and c eliac ostia are occluded. Findings discussed with Dr. Morin at approximately 1145 on 09/12/2018. 2. Bilateral pulmonary emboli involving segmental and subsegmental branches to each pulmonary lobe bi laterally. No abnormal right ventricular to left ventricular ratio to suggest right heart strain. No enlargement of the main pulmonary artery. Findings discussed with the ordering ER provider at 1258 on 09/12/2018. 3. Although there is patency of the renal arteries there are multiple left-sided renal infarcts. Righ t renal perfusion is maintained. 4. Groundglass opacity in the left lower lobe that may relate to early developing pneumonia. Other et iologies such as bronchoalveolar carcinoma is possible and therefore short-term follow-up CT chest in 3 months is recommended to evaluate for resolution. Evaluation of the bilateral nodular probable ate lectasis is also recommended at that time. 5. Complete occlusion of the common iliac arteries, internal iliac arteries, external iliac arteries, right popliteal artery, and branch vessels of the popliteal arteries to the bilateral lower extremit ies.
[2018-09-12] MEDS ORDERED: DEXTROSE 5% IN WATER 1,000 ML with SODIUM BICARB (1 MEQ/ML) 150 ML IV SCH (12:30)
[2018-09-12] MEDS ORDERED: SODIUM BICARB 8.4% 50 ML SYR (1 MEQ/ML) IV ONE ×2 (12:38→12:40)
[2018-09-12] MEDS ORDERED: SODIUM CHLORIDE 0.9% 1,000 ML IV ONE (12:47)
[2018-09-12 13:10] LABS: VBG PH 7.25 (7.31-7.41)
[2018-09-12] MEDS ORDERED: PHENYLEPHRINE-0.9% NACL SYG 1 MG/10 ML SYRINGE ONE (13:19)
[2018-09-12] MEDS ORDERED: CALCIUM CHLORIDE 100 MG/ML 10 ML SYRINGE ONE (13:19)
[2018-09-12] MEDS ORDERED: IV FLUID CONTINUATION 800 ML IV ONE (13:19)
[2018-09-12] MEDS ORDERED: NOREPINEPHRINE 1 MG/ML 4 ML VIAL IV ONE (13:19)
[2018-09-12] MEDS ORDERED: MIDAZOLAM 2 MG/2 ML VIAL ONE (13:19)
[2018-09-12] MEDS ORDERED: PROPOFOL 10 MG/ML 20 ML VIAL IV ONE (13:19)
[2018-09-12] MEDS ORDERED: SODIUM BICARB 8.4% 50 ML SYR (1 MEQ/ML) ONE (13:19)
[2018-09-12] MEDS ORDERED: VECURONIUM 10 MG VIAL IV ONE (13:19)
[2018-09-12] MEDS ORDERED: fentaNYL (PF) 50 MCG/ML 2 ML AMP ONE (13:19)
[2018-09-12] MEDS ORDERED: ePHEDrine SULFATE/0.9% NACL/PF 50 MG/5 ML SYRINGE IV ONE (13:19)
[2018-09-12] MEDS ORDERED: EPINEPHrine 10 ML SYRINGE (0.1 MG/ML) ONE (13:19)
[2018-09-12] MEDS ORDERED: ceFAZolin 1,000 MG VIAL ONE (13:19)
[2018-09-12] MEDS ORDERED: HEPARIN SODIUM,PORCINE 10,000 UNIT in SODIUM CHLORIDE 0.9% 1,000 ML IRRIGATION ONE (14:00)
[2018-09-12] MEDS ORDERED: SODIUM CHLORIDE 0.9% 500 ML 500 ML IV ONE (14:02)
[2018-09-12] MEDS ORDERED: SODIUM CHLORIDE 0.9% 99 ML with VASOPRESSIN 20 UNIT IV SCH ×2 (14:15)
[2018-09-12 15:38] LABS: Anisocytosis Slight; Hypochromasia Marked; MCH 33.3 pg (25.0-35.0); MCHC 31.4 g/dL (31.0-37.0); MCV 105.9 fL (80.0-100.0); Macrocytosis Moderate; Mean Platelet Volume 7.3; RBC 1.82 m/uL (4.30-5.90); RDW 17.1 % (11.5-15.5); WBC 9.8 k/uL (3.8-10.6)
[2018-09-12 15:40] LABS: Platelet Count 158 k/uL (150-450)
[2018-09-12 15:44] LABS: HCT 19.2 % (39.0-53.0)
[2018-09-12] MEDS ORDERED: IOPAMIDOL-370 50ML BTL IRRIGATION ONE (15:45)
[2018-09-12] MEDS ORDERED: THROMBIN (BOVINE) 5,000 UNIT VIAL TOPICAL ONE ×2 (15:46)
[2018-09-12] MEDS ORDERED: GELATIN SPONGE,ABSORB (LARGE) 1 EACH SPONGE TOPICAL ONE (15:46)
[2018-09-12 16:36] LABS: ABG PH 7.11 (7.35-7.45)
[2018-09-12 16:37] LABS: ABG Base Excess -18.8 mmol/L; ABG HCO3 9 mmol/L (21-25); ABG Oxygen Saturation 98.4 % (94-97); ABG PCO2 30 mmHg (35-45); ABG PO2 233 mmHg (83-108)
[2018-09-12] MEDS ORDERED: LACTATED RINGERS 1,000 ML IV ONE ×3 (17:29→17:31)
[2018-09-12 18:09] LABS: Glucose,Whole Blood 64 mg/dL (75-99)
--- NOTE | 2018-09-12 18:47 | P.OP ---
Date of Procedure: 09/12/18 Preoperative Diagnosis: Acute bilateral lower extremity critical limb ischemia Acute on chronic azzhx-pf-fxsad artery occlusion Metabolic acidosis secondary to ischemia Left subclavian artery occlusion Celiac and SMA artery occlusive disease Severe COPD, CAD Postoperative Diagnosis: Acute bilateral lower extremity critical limb ischemia Acute on chronic cxfxn-zq-fhmij occlusion Bilateral subclavian artery occlusions Severe metabolic acidosis Cardiogenic pressor dependent shock Procedure(s) Performed: Right axillo-bifemoral artery bypass Right upper extremity selective angiogram and aortogram Right subclavian artery balloon angioplasty and stenting Bilateral four compartment fasciotomy Right brachial artery arterial line placement Implants: Satin axillo-bifemoral 8mm graft Anesthesia: GETA Surgeon: Ulises Morin Tail End Rider #1: Myron Chu Estimated Blood Loss (ml): 200 Urine output (ml): 300 Pathology: none sent Condition: critical Disposition: ICU Indications for Procedure: 58 year-old gentleman presented to the ED with complaints of lower abdominal and extemity mottling. He was diagnosed with critical limb ischemia and acute on chronic aortic and iliac occlusions. He underwent CTA which demonstrated no evidence of bowel ischemia but noted occlusion of the left subclavian, carotid arteries along with bilateral segmental PE's. A long discussion was had with him and his family about possibilities for surgical intervention versus medical management. The family and patient were informed of the low probability of survival if surgical intervention was chosen and the patient understood if nothing was done that he would not survive so he chose to have surgical bypass performed. He presents to the OR for emergent zmmhfb-qb-alzufkc artery bypass. Operative Findings: right subclavian artery occlusion with poor inflow. Bilateral lower extremity ischemia with non-viable lower extremity musculature. Description of Procedure: After written informed consent was obtained the patient all risks benefits and complications were described the patient was brought to the operative suite and laid in a supine position. The area of the right upper extremity chest abdomen and lower extremities were prepped and draped in usual sterile fashion after appropriate anesthetic was performed per the anesthesiologist. A timeout was performed in normal fashion, antibiotics were administered prior to incisions. During prepping of the patient there was difficulty with blood pressure therefore the right brachial artery was prepped for arterial line placement. Utilizing ultrasound the right brachial artery was visualized and shown to be patent with diminished pulsation. Utilizing a multipurpose needle the artery was cannulated. Guidewire was placed followed by an arterial catheter. This was then hooked up for arterial line demonstrating a blood pressure. Attention was then placed back to prepping the patient for his surgery. Attention was first placed to dissection of the subclavian artery. An oblique incision was created just beneath the clavicle on the right and dissection was carried down through the pectoralis muscle suture down to the fascia. Subclavian vein was located and dissection was carried around the vein with ligation of some branches to further dissect to the subclavian artery. Artery was located and circumferential dissection was performed both proximally and distally and controlled with vessel loops. Attention was then placed to the bilateral groins. Vertical incisions were then created at bilateral femoral/groin areas and dissection was carried down through subcutaneous tissue with electrocautery. Dissection to the femoral sheath which was incised and the common femoral artery, profundus and superficial femoral artery was dissected free in a circumferential manner and controlled with vessel loops. Patient was continued on his heparin drip during throughout the surgery and the subclavian artery was clamped proximally and distally. Arteriotomy was then created with 11 blade scalpel. Inflow was then assessed which demonstrated no inflow. A vessel dilator was then placed demonstrating improved inflow with dilation. Once the dilator was removed there was no inflow therefore a 7-Sami sheath was placed and retrograde angiogram of the right upper extremity subclavian artery was obtained. Upon angiogram was noted there was an occlusion just distal to the takeoff of the subclavian artery. An 035 Glidewire was then placed across the occlusion into the aortic arch. Utilizing a 6 x 40 mm balloon balloon angioplasty was performed demonstrating some improvement of inflow but once the balloon was removed inflow ceased. At that time a 6 x 40 mm Medtronic stent was then chosen to be placed and was placed across the lesion under direct visualization of fluoroscopy. Once completed the inflow was brisk and pulsatile and all guidewires and catheters were then removed. He did obtain in a arterial pressure at that time which demonstrated systolic blood pressure of 150. At that time we tunneled an 8mm Satin PTFE bifurcated graft in the normal fashion from the subclavian incision down to the bilateral femoral incisions. End-to-side anastomosis was then created with 6-0 Prolene suture in a running fashion at the subclavian artery. Once completed all control was released demonstrating pulsatile flow within the graft. Attention was then placed to the femoral arteries. These were clamped proximally and distally and arteriotomy with 11 blade scalpel was performed with extension with Pott Herron scissors. Upon dissection into the femoral arteries it was noted there was dense disease throughout. There was good backbleeding noted from the right SFA and deep femoral. The left profundus had good backbleeding as well. The graft was then spatulated and end-to-side anastomoses was created with 6-0 Prolene suture in a running fashion bilaterally. Prior to last sutures being placed control was released demonstrating good backbleeding. Forward flushing was also performed removing any air or debris from the graft itself. Final sutures were then secured and Doppler signal was noted distal to the anastomosis. Throughout the procedure patient was having difficulty with his blood pressure needing increasing amounts of vasopressors. During the procedure due to the decrease in blood pressure and difficulty maintaining perfusion a KILO was performed per anesthesia please see their dictation/ documentation. Upon conclusion of the procedure there was flow noted within the graft but this was diminished due to poor ejection fraction and from the patient's heart. All incisions were then copiously irrigated and closed in a multilayer fashion. The patient's pressure was marginal at that time on high doses of vasopressors. He was taken to the ICU in grave condition.
--- NOTE | 2018-09-12 18:50 | P.PN ---
Progress Note - Text Progress Note Date: 09/12/18 Long discussion was had with the patient's family once he was in the intensive care unit about poor prognosis as well as the amount of support required at this time to maintain any blood pressure and they decided to make the him comfort care.
[2018-09-12 20:02] VITALS: BP 75/50; PULSE 73; RESP 0
[2018-09-12 21:27] LABS: Hemoglobin A1C 5.7 % (4.0-6.0)
--- NOTE | 2018-09-12 23:21 | HP ---
HISTORY AND PHYSICAL PRELIMINARY CAUSE OF : Acute aortoiliac occlusion and critical limb ischemia. HISTORY OF PRESENT ILLNESS: This 58-year-old gentleman with a past medical history of multiple medical problems, being followed by [facility] in the outpatient setting, was recently admitted to [facility] with acute non-ST elevation myocardial infarction, abdominal pain , possible ischemic colitis, enteritis, and aortoiliac vascular occlusion with peripheral vascular disease and diffuse leg pain. The patient also had multiple other medical problems including chronic lymphocytic leukemia, COPD, history of back pain also. During the admission, patient was evaluated by multiple consultants including Cardiology, Vascular Surgery, Dr. Chu, as well as Dr. Campuzano from Orthopedic Surgery. The patient was treated medically. The patient was thought to be high risk candidate for any surgical intervention and Dr. Rodriguez recommended outpatient followup. Cardiology also recommend medical management and outpatient followup as well. Please refer to the previous dictations of Cardiology and Vascular Surgery and Orthopedic Surgery for further information. The patient again presented to the ER with features of critical limb ischemia. The patient had multiple local occlusions of the aortoiliac tree. They were also given the option of transferring elsewhere whcih they declined becasue of the grave prognosis. The patient was taken directly from the ER to the operating room by Dr. Morin. Dr. Morin gave the option of surgical versus medical treatment to the family with a very grim prognosis, but the patient and family apparently opted for possible surgery. During surgery, the patient had a prolonged surgery for attempted grafting by Dr. Morin. Due to surgery the patient had severe hypotension and multiple other complications. Please refer Dr. Morin's detailed operative note for further information. The patient was on multiple pressors. The prognosis was extremely guarded per Dr. Morin's notes. The case was discussed with the family and they opted to go with comfort measures, so the patient was made comfort measures in the operating room itself. The patient subsequently because of the above mentioned multiple complex medical issues. Please refer to the multiple progress notes and the notes from the previous admission for further information. OTHER DIAGNOSES: 1. Recent acute non ST-segment elevation myocardial infarction. 2. Recent right-sided enteritis or ischemic colitis. 3. Recent back pain with a bulging in disk. 4. History of acute lymphocytic leukemia. 5. Chronic obstructive pulmonary disease. 6. Electrolyte imbalance. 7. History of back pain. Once again, the patient's prognosis remained extremely guarded and the patient was taken to the OR directly from the emergency room. Please refer to the detailed notes by the vascular surgeon, Dr. Morin, for further information. MMODL / IJN: [id number] / MTDD
--- NOTE | 2018-09-13 09:22 | FL ---
EXAMINATION TYPE: FL guidance operating room DATE OF EXAM: 09/12/2018 HISTORY: Flouroscopy time Less than 120 seconds of fluoroscopy provided. IMPRESSION: 1. Fluoroscopy time.
== END 2018-09-12 20:05 | disposition expired | DRG 252 ==
LOC: EC 07:58 → 2SICU 11:57
PROVIDERS: ADMIT Hospitalist; ATTEND Hospitalist
PROC: 03733DZ Dilation of Right Subclavian Artery with Intraluminal Device, Percutaneous Approach (ICD-10-PCS; 2018-09-12)
PROC: B31H1ZZ Fluoroscopy of Right Upper Extremity Arteries using Low Osmolar Contrast (ICD-10-PCS; 2018-09-12)
PROC: 03HY32Z Insertion of Monitoring Device into Upper Artery, Percutaneous Approach (ICD-10-PCS; 2018-09-12)
PROC: 4A133B1 Monitoring of Arterial Pressure, Peripheral, Percutaneous Approach (ICD-10-PCS; 2018-09-12)
PROC: 4A133J1 Monitoring of Arterial Pulse, Peripheral, Percutaneous Approach (ICD-10-PCS; 2018-09-12)
PROC: B24BZZ4 Ultrasonography of Heart with Aorta, Transesophageal (ICD-10-PCS; 2018-09-12)
PROC: 02HV33Z Insertion of Infusion Device into Superior Vena Cava, Percutaneous Approach (ICD-10-PCS; 2018-09-12)
PROC: 30233N1 Transfusion of Nonautologous Red Blood Cells into Peripheral Vein, Percutaneous Approach (ICD-10-PCS; 2018-09-12)
PROC: 03150JC Bypass Right Axillary Artery to Bilateral Lower Leg Artery with Synthetic Substitute, Open Approach (ICD-10-PCS; principal; 2018-09-12 12:10)
DX: I74.09 Other arterial embolism and thrombosis of abdominal aorta (principal); I21.4 Non-ST elevation (NSTEMI) myocardial infarction; N28.0 Ischemia and infarction of kidney; E87.2 Acidosis; I74.5 Embolism and thrombosis of iliac artery; I82.B13 Acute embolism and thrombosis of subclavian vein, bilateral; Z51.5 Encounter for palliative care; I26.99 Other pulmonary embolism without acute cor pulmonale; R57.0 Cardiogenic shock; I77.89 Other specified disorders of arteries and arterioles; I99.8 Other disorder of circulatory system; I25.10 Atherosclerotic heart disease of native coronary artery without angina pectoris; D64.9 Anemia, unspecified; M54.30 Sciatica, unspecified side; R25.1 Tremor, unspecified; M54.9 Dorsalgia, unspecified; J44.9 Chronic obstructive pulmonary disease, unspecified; F17.200 Nicotine dependence, unspecified, uncomplicated; Z79.82 Long term (current) use of aspirin; Z79.818 Long term (current) use of other agents affecting estrogen receptors and estrogen levels; Z79.899 Other long term (current) drug therapy; Z86.711 Personal history of pulmonary embolism; Z96.642 Presence of left artificial hip joint; Z85.6 Personal history of leukemia; Z92.21 Personal history of antineoplastic chemotherapy; Z87.01 Personal history of pneumonia (recurrent); Z91.048 Other nonmedicinal substance allergy status; Z80.1 Family history of malignant neoplasm of trachea, bronchus and lung
CPT/HCPCS: 36415; 36556; 51702; 71045; 71275; 74018; 75635; 80053; 81001; 82150; 82550; 82553; 82803; 82805; 83036; 83605; 83690; 83735; 84484; 85025; 85027; 85610; 86850; 86900; 86901; 86920; 93005; 96361; 96365; 96367; 96368; 96375; 96376; 99291